=== PATIENT | female | born 1975 | race Hispanic/Latino ===

== ENCOUNTER 2018-04-05 07:31 | Day surgery (SDC) | payer BC ==
[2018-03-30 11:53] LABS: Absolute Lymphocytes (CBC) 2.2 K/uL (0.7-4.9); Absolute Monocytes 0.3 K/uL (0.1-1.3); Absolute Neutrophil 3.9 K/uL (1.8-8.0); Basophils % 0.5 % (0-1.3); Eosinophils % 2.3 % (0-4.4); Hematocrit 34.5 % (36.0-45.0); Lymphocytes % 33.5 % (15.3-44.8); MCH 20.7 pg (27.0-35.0); MCV 66.4 fL (80-100); MPV 7.1 fL (7.6-11.3); Monocytes % 4.4 % (3.3-12.3); RBC Red Blood Cell Count 5.19 M/uL (3.86-4.86)
[2018-03-30 12:03] LABS: Urine Appearance CLEAR; Urine Bilirubin NEGATIVE (NEG); Urine Blood 1+ (NEG); Urine Color YELLOW; Urine Glucose NEGATIVE (NEG); Urine Protein TRACE (NEG); Urine Specific Gravity 1.025 (1.005-1.030); Urine Urobilinogen 0.2 mg/dL (0.2-1.0)
[2018-03-30 12:06] LABS: Urine Microscopic Reflex ORDER UMIC
[2018-03-30 12:21] LABS: Anisocytosis 1+; Blood Morphology Comment NOTED (NOT SEEN); Hypochromasia 1+; Platelet Estimate ADEQ
[2018-03-30 13:26] LABS: Urine Amorphous Sediment TRACE /HPF (NONE SEEN); Urine Bacteria <20 /HPF (<20); Urine Culture Reflex Order NOT NEEDED; Urine RBC <5 /HPF (NONE SEEN)
--- NOTE | 2018-03-30 17:38 | EKG ---
Test Date: 2018-03-30 Test Time: 11:41:39 [place] Seamer: FIDENCIO MEASUREMENT RESULTS: Intervals: Rate: 61 PA: 140 QRSD: 80 QT: 408 QTc: 410 [place]: P: 46 PA: 140 QRS: 78 T: 54 INTERPRETIVE STATEMENTS: Normal sinus rhythm Normal ECG Compared to ECG 11/20/2017 13:01:14 No significant changes Electronically Signed On 03-30-18 17:36:49 CDT by Sergio Shaw
[2018-04-05] MEDS ORDERED: Ringers Lactate 1,000 ML IV ONE ×2 (07:39→09:07)
[2018-04-05] MEDS ORDERED: ROCURONIUM 50 MG/5 ML VIAL IV ONE (07:40)
[2018-04-05] MEDS ORDERED: PROPOFOL 200 MG/20 ML VIAL IV ONE (07:40)
[2018-04-05] MEDS ORDERED: DEXAMETHASONE 10 MG/ML VIAL ONE (07:40)
[2018-04-05] MEDS ORDERED: FENTANYL CITR 250 MCG/5 ML ONE ×2 (07:40→09:13)
[2018-04-05] MEDS ORDERED: MIDAZOLAM HCL 2 MG/2 ML INJ ONE (07:40)
[2018-04-05] MEDS ORDERED: SCOPOLAMINE HYDROBROMIDE PATCH TD ONE (07:45)
[2018-04-05] MEDS: CEFAZOLIN/SWI 2gm 2 GM/20 ML SYR IV SCH ×2 (08:06→08:25)
[2018-04-05] MEDS: NA CHLORIDE 0.9% 1,000 ML ONE ×2 (08:08→08:15)
[2018-04-05 08:12] LABS: Specific Gravity 1.025 (1.005-1.030)
[2018-04-05] MEDS ORDERED: KETOROLAC 30 MG/ML INJ ONE (10:20)
[2018-04-05] MEDS ORDERED: Mastisol Adhesive Liq ONE (10:51)
[2018-04-05] MEDS: MORPHINE 4 MG/ML SYR ONE ×4 (11:28→11:43)
[2018-04-05] MEDS ORDERED: MEPERIDINE HCL 25 MG/0.5 ML ONE ×2 (11:47→12:07)
[2018-04-05] MEDS ORDERED: HYDROCODONE/APAP 5/325 MG TAB ONE ×2 (12:52→14:07)
[2018-04-05 14:16] VITALS: TEMP 98
[2018-04-05 14:28] VITALS: BP 133/84; O2SAT 95
--- NOTE | 2018-04-05 20:28 | OP ---
Date of Procedure: 04/05/2018 Surgeon: Krysta Dumont MD Preoperative Diagnoses: Heavy menstrual bleeding, failed ablation. Postoperative Diagnoses: Heavy menstrual bleeding, failed ablation. Procedures Performed: Total laparoscopic hysterectomy, bilateral salpingectomy, cystoscopy. Anesthesia: General endotracheal. Estimated Blood Loss: 100. Urine Output: 200. Specimens: Uterus, bilateral tubes. Complications: None. Drains: None. Condition: The patient is stable. Findings: Uterus slightly enlarged. Ovaries normal. Tubes normal. Cystoscopy was negative with pa tent bilateral ureteric jets. Description Of Procedure: After informed consent was verified, the patient was taken back to the OR. 2 g of Ancef were given. The patient was put under general anesthesia. She was positioned by arms tucked on her side in lithotomy with Manny stirrups. Pelvic exam was performed. Uterus was found t o be anteflexed about 6-8 weeks size, mobile. No nodularity in the cul-de-sac. No adnexal masses. Abdomen, vulva, vagina, and perineum were prepped and draped in a sterile fashion. Huston was placed to drain the bladder and a large VCare introduced and fixed in place and this area draped. A 1 cm infraumbilical incision was made with a scalpel using the open laparoscopy technique. Fascia was exposed, incised, tagged. Peritoneum entered bluntly. S retractors placed and Risa introduced and fixed in place. Site of entry was checked. The area above the umbilical incision had omental a dhesions. However, rest of the upper abdominal cavity, lower abdominal cavity were all free of adhes ions. The patient was placed in Trendelenburg position. A 5 mm left lower quadrant and 10 mm suprapubic tr ocars were placed under direct vision, later on a 5 mm in right lower quadrant was placed without any problems. On survey of the pelvic cavity, both tubes and ovaries appeared to be normal unremarkable without any endometriosis. Implants on the peritoneal surfaces and the pelvis. Both ureters were i dentified from the pelvic brim to the ureteric tunnel, and there was no anatomical distortion. After taking down the mesosalpinx and the tube on the left side, utero-ovarian ligament was taken ryan n. Round ligament was taken down. Dissection was performed to open up the anterior broad ligament a nd this was taken to the other side along the bladder flap, and the bladder flap was retracted inferi tamiko. The vaginal cuff was exposed. The posterior broad ligament was taken down all the way to the left uterosacral. Then, the broad ligament was skeletonized to expose the vessels. The fat in front of the bladder was also dissected and pushed inferiorly. On the opposite side, the round ligament, mesosalpinx, utero-ovarian ligament, and tube were all take n down. The round ligament after complete transection, the anterior posterior broad ligaments were d issected. The anterior one was connected to the bladder side from the other side and posteriorly to the right uterosacral ligament. At this point, there was a broad ligament vessel vein that was bleed ing, and this was cauterized with the help of the curved-tip LigaSure. Once the vessels were skeleto nized here, the bladder flap was placed a little bit further about 2 cm above and distal to the area of the colpotomy. After the windows were made, first on the right side, the pedicles were taken down with the help of the basket tip bipolar and then the LigaSure. Then the cardinal ligaments were als o taken down. On the opposite side, similar dissection was performed taking down the vessels, the ut erine artery and vein, and the cardinal ligaments. There was vascularity at the level of the vaginal wall, and all these small vessels when they bled were taken down with the help of the basket tip bip olar by picking up with the graspers. Colpotomy was performed with the monopolar hook blade in a circumferential fashion. Specimen detache d and pulled out through the vagina. There was a bleeder at about in 2 o'clock position on the vaginal cuff on the abdominal side of the w all. This was picked up with [place] grasper and cauterized with the help of bipolar. There was ex cellent hemostasis after this. After thorough irrigation and suction of the clots, a salpingectomy w as performed first on the left side, then on the right side taking down the mesosalpinx in a systemat ic fashion all the way to the fimbriated end, and suturing the specimens to the suprapubic port. Onc e both of them were removed in this fashion, the ovaries had good vascular supply and appeared to be in good position without any potential for torsion. After the vaginal cuff was well irrigated and suction, it was decided to be closed with a running sti tch with a barbed suture. A knot was placed with the tip of the Bard suture and this was passed thro ugh the posterior vaginal wall at the right end of the cuff and then it was brought back up in a cont inuous running fashion, about 6 sutures were placed to close the anterior and posterior vaginal donaldson . The V-Loc was used all the way to the end and then it was cut short by like about leaving a 3 mm t ail. There was excellent hemostasis. The peritoneum was closed with the help of 3-0 Vicryl in a con tinuous running fashion anteriorly and posteriorly. Once this was done, there was excellent closure without exposure of the V-Loc to the bowel. After thorough irrigation and suction of the entire peritoneal cavity, trocars removed under direct v ision without any bleeding. The umbilical trocar was removed after gas was desufflated. The fascia was closed with the help of 0 PDS in a [id number] fashion and the suprapubic fascial incision cl osed with the help with 0 Vicryl stitch. Cystoscopy was performed with a 30-degree lens normal saline for distention medium and a 17-Kiswahili sh eath. There were excellent streams of urine from both ureteric orifices. No evidence of any trauma to the bladder. There was a small pucker on the right lateralmost aspect lateral to the trigonal are a, but no suture, and no evidence of any foreign body. The bladder was drained. Vaginal cuff was in spected with the cystoscope by doing a vaginoscopy. There was excellent closure and no raw edges. T he scope was removed. The patient was cleaned up. Instrument, needle, and sponge counts x3 were correct at the end of the case. The vaginal bulb was removed as well. She will follow up with me in 1 week. HANNY/NIDHI Voice ID: [id number] Report ID: [id number]
== END 2018-04-05 12:20 | disposition home or self-care (01) ==
LOC: OR 07:31
PROVIDERS: ATTEND Obstetrics & Gynecology
PROC: 0UT74ZZ Resection of Bilateral Fallopian Tubes, Percutaneous Endoscopic Approach (ICD-10-PCS; 2018-04-05)
PROC: 0UT94ZZ Resection of Uterus, Percutaneous Endoscopic Approach (ICD-10-PCS; principal; 2018-04-05 08:30)
DX: N92.0 Excessive and frequent menstruation with regular cycle (principal); N83.8 Other noninflammatory disorders of ovary, fallopian tube and broad ligament; N70.11 Chronic salpingitis; D50.9 Iron deficiency anemia, unspecified; R60.0 Localized edema; I10 Essential (primary) hypertension; Z68.42 Body mass index [BMI] 45.0-49.9, adult; E66.01 Morbid (severe) obesity due to excess calories; Z88.0 Allergy status to penicillin; Z88.3 Allergy status to other anti-infective agents; Z82.49 Family history of ischemic heart disease and other diseases of the circulatory system; Z83.3 Family history of diabetes mellitus; Z80.3 Family history of malignant neoplasm of breast
CPT/HCPCS: 36415; 81003; 81015; 81025; 85025; 86850; 86900; 86901; 88307; 93005; J0690; J1100; J2175; J2250; J7030

== ENCOUNTER 2020-12-28 06:28 | Observation (INO) | payer OTHER ==
--- OUTSIDE RECORDS SUMMARY | 2020-12-28 06:31 | XMS REPORT | Continuity of Care Document ---
:1975 Author Organization [facility] Address [address] [place] [address] Care Team Providers Name Role Phone Unavailable Unavailable Unavailable Problems Condition Condition Condition Status Onset Resolution Last Treating Co mments Source Name Details Category Date Date Treatment Clinician Date Bilateral Bilateral Diagnosis Active [facility] - extremity extremity Florentino mendy edema edema l [facility] Body mass Body mass Diagnosis Active [facility] index index [facility] - (BMI) of (BMI) of Memori a 50-59.9 in 50-59.9 in l adult adult [facility] Stress Stress Diagnosis Active [facility] incontin[facility] incontinen Pita k[facility] - ce of ce of Memoria urine urine l [facility] Swelling Swelling Problem [facility] Morbid Morbid Diagnosis Active [facility] (severe) (severe) [facility] - obesity obesity Memoria due to due to l excess excess [facility] calories calories ent Clinics Chronic Chronic Diagnosis [facility] anemia [facility] Leg pain, Leg pain, Diagnosis Active [facility] left left [facility] Overactive Overactive Diagnosis Active [facility] bladder bladder [facility] Allergies, Adverse Reactions, Alerts Allergy Allergy Status Severity Reaction(s) Onset Inactive Treating Comm ents Source Name Type Date Date Clinician penicill Adverse Active hives [facility] in Reaction [facility] Medications Ordered Filled Start Stop Current Ordering Indication Dosage Frequency Signature Comments Components Source Medication Medication Date Date Medication? Clinician (SIG) Name Name Lasix Lasix Yes Na La [address] [facility] 7[facility]20 [facility] - 00:00: Memoria 00 l [facility] Potassium Potassium 2018- No Na La [address] [facility] Chloride ER Chloride ER 7-20 10-18 with food [facility] - 00:00: 00:00 [facility] 00 :00 [facility] VESIcare VESIcare 2018- No Na La [address] [facility] Procedures This patient has no known procedures. Encounters Start End Encounter Admission Attending Care Care Encounter Source Date/Time Date/Time Type Type Clinicians Facility Department ID 2018-05-25 2018-05-25 Outpatient Rigo Esquivel [id number] [facility] 09:15:00 09:15:00 [employer] [facility] Medicine [facility] Results This patient has no known results.
--- NOTE | 2020-12-28 08:41 | RAD REPORT ---
EXAM DESCRIPTION: US - Abdomen Exam Limited - 12/28/2020 7:49 am CLINICAL HISTORY: RUQ pain COMPARISON: No comparisons FINDINGS: The gallbladder demonstrates several shadowing gallstones. No pericholecystic fluid or gal lbladder wall thickening. The common bile duct is normal measuring 2 mm. The liver demonstrates no findings of intrahepatic biliary dilatation. IMPRESSION: Cholelithiasis.
[2020-12-28] MEDS ORDERED: ONDANSETRON 4 MG/2 ML VIAL ONE ×2 (08:43→13:44)
[2020-12-28] MEDS ORDERED: MORPHINE 4 MG/ML SYR ONE ×4 (08:43→13:44)
[2020-12-28 08:51] LABS: Basophils % 0.8 % (0-1.3); Hematocrit 33.3 % (36.0-45.0); Lymphocytes % 31.1 % (15.3-44.8); MPV 7.1 fL (7.6-11.3); RBC Red Blood Cell Count 4.67 M/uL (3.86-4.86)
[2020-12-28 09:04] LABS: ALT/SGPT 86 U/L (12-78); AST/SGOT 51 U/L (15-37); Albumin 3.4 g/dL (3.4-5.0); Alkaline Phosphatase 98 U/L (45-117); BUN Blood Urea Nitrogen 7 mg/dL (7-18); Bicarbonate 25 mmol/L (21-32); Bilirubin Direct < 0.1 mg/dL (0-0.2); Bilirubin Total 0.4 mg/dL (0.2-1.0); Glucose Level 107 mg/dL (74-106); Lipase 217 U/L (73-393); Potassium 3.5 mmol/L (3.5-5.1); Protein, Total 7.8 g/dL (6.4-8.2); Sodium Level 142 mmol/L (136-145)
--- NOTE | 2020-12-28 09:51 | EDPHYS ---
Physician Documentation [facility] Name: Sophy Bernal Age: 45 yrs Sex: Female : 1975 Arrival Date: 12/28/2020 Time: 06:36 Bed 15 Private MD: ED Physician Vince Clark HPI: 12/28 07:51 This 45 yrs old Female presents to ER via Ambulatory with complaints of Flank rn Pain, Abdominal Pain - RUQ. 07:51 The patient presents with abdominal pain in the right upper quadrant. Onset: The rn symptoms/episode began/occurred this morning, at 03:00. The symptoms radiate to right back. Associated signs and symptoms: Pertinent positives: diarrhea, nausea, Pertinent negatives: fever, shortness of breath, vomiting blood. The symptoms are described as intermittent, sharp. Modifying factors: The symptoms are alleviated by nothing, the symptoms are aggravated by touching the area. Severity of pain: At its worst the pain was moderate in the emergency department the pain is unchanged. The patient has experienced a previous episode. The patient has not recently seen a physician. Reports pain since 0300 this AM, assoc with nausea and diarrhea, no fever, told in past might need gallbladder removed but hadn't caused problems until now. . 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 - Social history:: Smoking status: Patient denies any tobacco usage or history of. - Family history:: not pertinent. - Hospitalizations: : No recent hospitalization is reported. - Code Status:: Full code. ROS: 07:51 Constitutional: Negative for fever, chills, and weight loss, Eyes: Negative for injury, rn pain, redness, and discharge, Cardiovascular: Negative for chest pain, palpitations, and edema, Respiratory: Negative for shortness of breath, cough, wheezing, and pleuritic chest pain, Abdomen/GI: + abd pain and nausea/diarrhea MS/Extremity: Negative for injury and deformity, Skin: Negative for injury, rash, and discoloration, Neuro: Negative for headache, weakness, numbness, tingling, and seizure. Exam: 07:51 Constitutional: Overweight woman, appears in pain, moaning Head/Face: Normocephalic, rn atraumatic. ENT: MMM Cardiovascular: Regular rate and rhythm. No pulse deficits. Respiratory: No increased work of breathing, no retractions or nasal flaring. Abdomen/GI: soft, + tendern RUQ, no rebound, neg ball Skin: Warm, dry MS/ Extremity: Pulses equal, no cyanosis. Neuro: Awake and alert, GCS 15, oriented to person, place, time, and situation. Vital Signs: 06:44 BP 175 / 101; Pulse 76; Resp 18; Temp 98.2(O); Pulse Ox 98% on R/A; Weight 122.47 kg lp1 (R); Height 4 ft. 11 in. (149.86 cm); Pain 10/10; 09:48 BP 151 / 68; rn 12:55 BP 156 / 68; Pulse 65; Resp 18; Temp 96.4; Pain 4/10; dm14 19:45 BP 162 / 76; Pulse 64; Resp 17; Pulse Ox 100% on R/A; jb4 06:44 Body Mass Index 54.53 (122.47 kg, 149.86 cm) lp1 MDM: 07:46 Patient medically screened. rn 09:48 Differential diagnosis: cholecystitis, Cholelithiasis, gastritis, gastroesophageal rn reflux disease, non-specific abd pain, pancreatitis, Peptic Ulcer Disease. Data reviewed: vital signs, nurses notes, lab test result(s), radiologic studies, ultrasound, and as a result, I will admit patient. Counseling: I had a detailed discussion with the patient and/or guardian regarding: the historical points, exam findings, and any diagnostic results supporting the discharge/admit diagnosis, lab results, radiology results, the need for further work-up and treatment in the hospital. Response to treatment: There is no appreciated change of the patient's symptoms at this time, and as a result, I will admit patient. Admission orders: after a detailed discussion of the patient's condition and case, the admit orders are written by me. ED course: Pt with intractable pain, consulted with Dr. Nichole, requests NPO and abx, will take patient onto his service. . 12/28 07:51 Order name: Basic Metabolic Panel; Complete Time: 09:06 rn 12/28 07:51 Order name: CBC with Diff; Complete Time: 09:06 rn 12/28 07:29 Order name: US Abdomen Limited; Complete Time: 08:45 rn 12/28 07:51 Order name: Hepatic Function; Complete Time: 09:06 rn 12/28 07:51 Order name: Lipase; Complete Time: 09:06 rn 12/28 07:51 Order name: IV Saline Lock; Complete Time: 18:05 rn 12/28 07:51 Order name: Labs collected and sent; Complete Time: 18:05 rn 12/28 09:34 Order name: NPO; Complete Time: 09:46 rn Administered Medications: 08:32 Drug: morphine 4 mg Route: IVP; Site: right antecubital; dm14 09:32 Follow up: Response: No adverse reaction; Pain is decreased dm14 08:32 Drug: Zofran (Ondansetron) 4 mg Route: IVP; Site: right antecubital; dm14 09:32 Follow up: Response: No adverse reaction dm14 09:40 Drug: morphine 4 mg Route: IVP; Site: right antecubital; dm14 09:46 Follow up: Response: No adverse reaction; Pain is decreased dm14 11:04 Drug: morphine 4 mg Route: IVP; Site: right antecubital; dm14 11:23 Follow up: Response: No adverse reaction; Pain is decreased dm14 11:40 Drug: Cipro 400 mg Volume: 200 ml; Route: IVPB; Infused Over: 60 mins; Site: right dm14 antecubital; 17:52 Follow up: Response: No adverse reaction; IV Status: Completed infusion dm14 11:40 Drug: Flagyl 500 mg Volume: 100 ml; Route: IVPB; Rate: 200 ml/hr; Infused Over: 30 dm14 mins; Site: right antecubital; 17:51 Follow up: Response: No adverse reaction; IV Status: Completed infusion dm14 13:35 Drug: morphine 4 mg Route: IVP; Site: right antecubital; dm14 17:32 Follow up: Response: No adverse reaction; Pain is decreased dm14 13:35 Drug: Zofran (Ondansetron) 4 mg Route: IVP; Site: right antecubital; dm14 17:32 Follow up: Response: No adverse reaction; Nausea is decreased dm14 17:31 Drug: Phenergan 12.5 mg Route: IVP; Site: right antecubital; dm14 17:33 Follow up: Response: No adverse reaction dm14 Disposition: 12/28/20 09:50 Hospitalization ordered by Sloan Nichole for Observation. Preliminary diagnosis are Cholelithiasis, Intractable pain. - Bed requested for Telemetry/MedSurg (observation). - Status is Observation. jb4 - Condition is Stable. - Problem is new. - Symptoms have improved. Signatures: Dispatcher [employer] EDMS Johana Hernandez Roman, MD MD rn Pena, Laura RN RN lp1 Luis Mo RN RN jb4 Esperanza Mercado RN RN dm14 Corrections: (The following items were deleted from the chart) 14:11 09:50 Hospitalization Ordered by Sloan Nichole MD for Observation. Preliminary diagnosis bd is Cholelithiasis; Intractable pain. Bed requested for Telemetry/MedSurg (observation). Status is Observation. Condition is Stable. Problem is new. Symptoms have improved. rn 14:59 14:11 12/28/2020 09:50 Hospitalization Ordered by Sloan Nichole MD for Observation. bd Preliminary diagnosis is Cholelithiasis; Intractable pain. Bed requested for [facility] ER HOLD. Status is Observation. Condition is Stable. Problem is new. Symptoms have improved. bd 20:14 14:59 12/28/2020 09:50 Hospitalization Ordered by Sloan Nichole MD for Observation. jb4 Preliminary diagnosis is Cholelithiasis; Intractable pain. Bed requested for Telemetry/MedSurg (observation). Status is Observation. Condition is Stable. Problem is new. Symptoms have improved. bd
--- NOTE | 2020-12-28 09:51 | ER ---
Nurse's Notes [facility] Name: Sophy Bernal Age: 45 yrs Sex: Female : 1975 Arrival Date: 12/28/2020 Time: 06:36 Bed 15 Private MD: Diagnosis: Cholelithiasis;Intractable pain Presentation: 12/28 06:42 Chief complaint: Patient states: Sharp pain that began about 0300 this AM; Reports RUQ lp1 pain radiating to back; Reports diarrhea for the past few days; Denies fever, vomiting. Coronavirus screen: Client denies travel out of the [place] in the last 14 days. At this time, the client does not indicate any symptoms associated with coronavirus-19. Ebola Screen: No symptoms or risks identified at this time. Risk Assessment: Do you want to hurt yourself or someone else? Patient reports no desire to harm self or others. Onset of symptoms was December 28, 2020 at 03:00. 06:42 Method Of Arrival: Ambulatory lp1 06:42 Acuity: CARMINE 2 lp1 06:44 Initial Sepsis Screen: Does the patient meet any 2 criteria? No. Patient's initial lp1 sepsis screen is negative. Does the patient have a suspected source of infection? No. Patient's initial sepsis screen is negative. Triage Assessment: 12:49 General: Appears distressed, uncomfortable, obese, well groomed. Pain: Complains of dm14 pain in right upper quadrant Pain radiates to right mid back Pain currently is 10 out of 10 on a pain scale. 15:27 General: Behavior is cooperative, appropriate for age, crying. 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 - Social history:: Smoking status: Patient denies any tobacco usage or history of. - Family history:: not pertinent. - Hospitalizations: : No recent hospitalization is reported. - Code Status:: Full code. Screenin:44 Abuse screen: Denies threats or abuse. Denies injuries from another. Nutritional lp1 screening: No deficits noted. Tuberculosis screening: No symptoms or risk factors identified. Fall Risk None identified. Assessment: 08:00 Reassessment: Received pt in pain 10/10. States has had gallbladder pain in the past. dm14 08:00 General: Appears distressed, uncomfortable, obese. Pain: Complains of pain in right dm14 upper quadrant Pain radiates to right mid back Pain currently is 10 out of 10 on a pain scale. 08:00 Neuro: No deficits noted. Cardiovascular: No deficits noted. GI: Abdomen is tender to dm14 palpation in right upper quadrant. 08:00 GI: Bowel sounds present X 4 quads. dm14 09:43 Reassessment: Continues to have right upper quadrant pain. Had slept for awhile. dm14 Otherwise condition unchanged. 12:55 Reassessment: Pain now 4/10. Pt quite drowsy and sleeping on and off. Surgeon was in to dm14 speak with her. 19:15 Reassessment: Patient appears in no apparent distress at this time. Patient and/or jb4 family updated on plan of care and expected duration. Pain level reassessed. Patient is alert, oriented x 3, equal unlabored respirations, skin warm/dry/pink. 19:50 Reassessment: Patient appears in no apparent distress at this time. Patient and/or jb4 family updated on plan of care and expected duration. Pain level reassessed. Patient is alert, oriented x 3, equal unlabored respirations, skin warm/dry/pink. Patient states feeling better. Vital Signs: 06:44 BP 175 / 101; Pulse 76; Resp 18; Temp 98.2(O); Pulse Ox 98% on R/A; Weight 122.47 kg lp1 (R); Height 4 ft. 11 in. (149.86 cm); Pain 10/10; 09:48 BP 151 / 68; rn 12:55 BP 156 / 68; Pulse 65; Resp 18; Temp 96.4; Pain 4/10; dm14 19:45 BP 162 / 76; Pulse 64; Resp 17; Pulse Ox 100% on R/A; jb4 06:44 Body Mass Index 54.53 (122.47 kg, 149.86 cm) lp1 ED Course: 06:36 Patient arrived in ED. am2 06:44 Triage completed. lp1 06:44 Arm band placed on. lp1 07:37 Patient's name was called from ER lobby. Unable to locate patient. Will disposition as lp1 left without being seen by a provider. 07:46 Vince Clark MD is Attending Physician. rn 07:49 US Abdomen Limited In Process Unspecified. EDMS 08:00 Ultrasound completed. hr 08:12 Esperanza Mercado, STEVEN is Primary Nurse. dm14 09:50 Sloan Nichole MD is Hospitalizing Provider. rn 15:11 No provider procedures requiring assistance completed. dm14 15:31 Patient has correct armband on for positive identification. Bed in low position. Call dm14 light in reach. Side rails up X2. 20:14 Patient admitted, IV remains in place. jb4 Administered Medications: 08:32 Drug: morphine 4 mg Route: IVP; Site: right antecubital; dm14 09:32 Follow up: Response: No adverse reaction; Pain is decreased dm14 08:32 Drug: Zofran (Ondansetron) 4 mg Route: IVP; Site: right antecubital; dm14 09:32 Follow up: Response: No adverse reaction dm14 09:40 Drug: morphine 4 mg Route: IVP; Site: right antecubital; dm14 09:46 Follow up: Response: No adverse reaction; Pain is decreased dm14 11:04 Drug: morphine 4 mg Route: IVP; Site: right antecubital; dm14 11:23 Follow up: Response: No adverse reaction; Pain is decreased dm14 11:40 Drug: Cipro 400 mg Volume: 200 ml; Route: IVPB; Infused Over: 60 mins; Site: right dm14 antecubital; 17:52 Follow up: Response: No adverse reaction; IV Status: Completed infusion dm14 11:40 Drug: Flagyl 500 mg Volume: 100 ml; Route: IVPB; Rate: 200 ml/hr; Infused Over: 30 dm14 mins; Site: right antecubital; 17:51 Follow up: Response: No adverse reaction; IV Status: Completed infusion dm14 13:35 Drug: morphine 4 mg Route: IVP; Site: right antecubital; dm14 17:32 Follow up: Response: No adverse reaction; Pain is decreased dm14 13:35 Drug: Zofran (Ondansetron) 4 mg Route: IVP; Site: right antecubital; dm14 17:32 Follow up: Response: No adverse reaction; Nausea is decreased dm14 17:31 Drug: Phenergan 12.5 mg Route: IVP; Site: right antecubital; dm14 17:33 Follow up: Response: No adverse reaction dm14 Outcome: 09:50 Decision to Hospitalize by Provider. rn 20:14 Admitted to Tele accompanied by tech, via wheelchair, room 422, with chart. jb4 20:14 Condition: stable 20:14 Discharge instructions given to patient, Instructed on the need for admit, Demonstrated understanding of instructions. 20:14 Patient left the ED. jb4 Signatures: Dispatcher [employer] EDMS Shirley Munoz hr Vince Clark MD MD rn Pena, Laura RN RN lp1 Luis Mo, RN RN jb4 Elizabet Michel Dianne RN RN dm14 Corrections: (The following items were deleted from the chart) 06:48 06:42 Acuity: CARMINE 3 lp1 lp1 13:54 12:58 Reassessment: Received pt in pain 08/15. States has had gallbladder pain in the dm14 past. dm14 14:04 08:00 General: Appears dm14 dm14 17:50 15:33 GI: Bowel sounds present X 4 quads. dm14 dm14 20:14 20:14 Discharge instructions given to patient, Instructed on the need for admit, jb4 jb4
[2020-12-28] MEDS ORDERED: CIPROFLOXACIN 400mg IV 400 MG/200 ML BAG IV ONE (11:42)
[2020-12-28] MEDS ORDERED: METRONIDAZOLE 500mg IVPB 500 MG/100 ML BAG IV ONE (11:42)
[2020-12-28] MEDS ORDERED: HYDROCODONE/APAP 7.5/325 MG TAB PO PRN (13:22)
[2020-12-28] MEDS ORDERED: PIPER/TAZO/NS 3.375gm 3.375 GM/100 ML BAG IVPB SCH (13:30)
[2020-12-28] MEDS ORDERED: PROMETHAZINE INJ 25 MG/ML AMP ONE (17:42)
[2020-12-28 20:20] VITALS: BMI 54.9
[2020-12-28] MEDS: CIPROFLOXACIN 400mg IV 400 MG/200 ML BAG IV SCH (21:19)
[2020-12-28] MEDS: NA CHLORIDE 0.9% 1,000 ML IV SCH ×2 (21:20→22:00)
[2020-12-28] MEDS: D5 0.45 NS 1,000 ML IV SCH (21:24)
[2020-12-28] MEDS ORDERED: ONDANSETRON 4 MG/2 ML VIAL IV PRN (21:24)
[2020-12-28] MEDS ORDERED: MORPHINE 4 MG/ML SYR IV PRN (21:24)
[2020-12-28] MEDS: METRONIDAZOLE 500mg IVPB 500 MG/100 ML BAG IV SCH (21:49)
--- NOTE | 2020-12-29 00:15 | HP ---
Date of Admission: 12/28/2020 Brief History Of Present Illness: The patient is a 45-year-old female who presents to [facility] with abdominal pain beginning in the right upper quadrant epigastric area with radiation through to her back, beginning late last night, early this morning after eating enchiladas. She has had this episode before in the past. On 1 episode, she was advised to have a cholecystectomy at that time, b ut has not followed up and as such, she now presents with recurrence of her symptoms. Her pain is si gnificantly improved. No nausea, no vomiting, no sick contacts. No recent travel. No new food expo sures. No COVID exposure by her description. She currently feels significantly better as described, but her pain is not completely resolved at this point. As such, she is in the hospital for evaluati on. Past Medical History: Significant for anemia. Past Surgical History: Tubal ligation and hysterectomy. Allergies: TO ERYTHROMYCIN AND PENICILLIN, WHICH CAUSED HIVES. Social History: She denies smoking, alcohol, recreational drug use. Review of Systems: Ten-point review of systems other than HPI, denies. Medications: None. Physical Examination: General: At the time of my examination, she is awake, alert, oriented. Psychiatric: She is appropriate and conversive. HEENT: She is normocephalic. Sclerae icteric. Mucous membranes are moist. Oropharynx clear. Neck: Supple without JVD. Chest: Normal expansion and excursion. Cardiovascular: Regular rate and rhythm. Pulmonary: Clear to auscultation bilaterally. Abdomen: Soft with mild epigastric and right upper quadrant tenderness to palpation. No rebound. N o guarding. No focal peritonitis. Negative Brito sign. No rebound or guarding. Abdomen: Obese generally. Extremities: No clubbing, cyanosis, or edema. Skin: Warm and dry. Laboratory Data: Revealed a white blood cell count of 6.6, hemoglobin 10.9, hematocrit of 33.3, plat elet count is 348. Her neutrophils are normal at 59%. Her sodium is 142, potassium 3.5, chloride 10 9, carbon dioxide 25, BUN 7, creatinine 0.5, glucose of 107, total bilirubin 0.4, direct component 0. 1, AST 51, ALT 86, alkaline phosphatase 98, lipase is 217. She had imaging performed, which included an ultrasound of the abdomen, officially read as gallbladder demonstrates several shadowing gallston es, no pericholecystic fluid or gallbladder wall thickening. The common bile duct is normal measurin g 2 mm. The liver demonstrates no findings of intrahepatic biliary dilatation, cholelithiasis on fin dings. Assessment And Plan: This is a 45-year-old female who comes in with signs and symptoms of biliary co lic. 1.IV fluid hydration. 2.Antibiotic coverage. 3.Serial abdominal exams and pain medication. 4.I have explained the risks, benefits, and alternatives of laparoscopic possible open cholecystecto my including but not limited to bleeding, infection, damage to surrounding tissues, injury to bile du cts, intestines, need for further operation, procedure. The patient would like to try nonoperative m anagement at this point and schedule this is an elective procedure. I have reviewed this plan versus operative plan and will admit the patient. If she is symptom free in the morning and continues to i mprove, we will likely start her on diet as tolerated. She can go home and follow up as an outpatien t. However, if she does not improve, we will likely plan for cholecystectomy as described above. YOLANDA/NIDHI Voice ID: [id number]
[2020-12-29] MEDS: METRONIDAZOLE 500mg IVPB 500 MG/100 ML BAG IV SCH ×4 (04:04→16:00)
[2020-12-29 04:31] LABS: Absolute Lymphocytes (CBC) 2.2 K/uL (0.7-4.9); Basophils % 0.5 % (0-1.3); Hematocrit 31.1 % (36.0-45.0); MPV 6.9 fL (7.6-11.3); RBC Red Blood Cell Count 4.39 M/uL (3.86-4.86)
[2020-12-29 04:49] LABS: ALT/SGPT 77 U/L (12-78); AST/SGOT 42 U/L (15-37); Albumin 2.8 g/dL (3.4-5.0); Alkaline Phosphatase 88 U/L (45-117); BUN Blood Urea Nitrogen 3 mg/dL (7-18); Bicarbonate 25 mmol/L (21-32); Bilirubin Total 0.5 mg/dL (0.2-1.0); Glucose Level 120 mg/dL (74-106); Lipase 130 U/L (73-393); Potassium 3.2 mmol/L (3.5-5.1); Protein, Total 6.8 g/dL (6.4-8.2); Sodium Level 141 mmol/L (136-145)
[2020-12-29] MEDS: D5 0.45 NS 1,000 ML IV SCH ×2 (05:21→14:02)
[2020-12-29] MEDS: NA CHLORIDE 0.9% 1,000 ML IV SCH (05:23)
[2020-12-29] MEDS: CIPROFLOXACIN 400mg IV 400 MG/200 ML BAG IV SCH (09:10)
[2020-12-29 10:47] VITALS: O2SAT 96
[2020-12-29] MEDS ORDERED: HYDROCODONE/APAP 10/325 TAB PO ONE (13:00)
[2020-12-29 16:24] VITALS: BP 140/77; TEMP 98.8
== END 2020-12-29 19:29 | disposition home or self-care (01) ==
LOC: ER 06:28 → ERHOLD 10:01 → 4TH 19:53
PROVIDERS: ADMIT Surgery; ATTEND Surgery
DX: K80.20 Calculus of gallbladder without cholecystitis without obstruction (principal); D64.9 Anemia, unspecified; R42 Dizziness and giddiness; Z20.822 Contact with and (suspected) exposure to COVID-19; Z88.0 Allergy status to penicillin; Z88.3 Allergy status to other anti-infective agents; Z90.710 Acquired absence of both cervix and uterus
CPT/HCPCS: 96365; 96368; 85025 ×2; 80048; 36415; 80076; 83690 ×2; 80053; 76705; 96375; 99285; 96366; U0003; J2550; J7799 ×2; J7030; J2405 ×2; J0744 ×3; G0378 ×3

== ENCOUNTER 2021-01-04 07:41 | Day surgery (SDC) | payer OTHER ==
[2021-01-04] MEDS: Ringers Lactate 1,000 ML IV ONE (08:15)
[2021-01-04] MEDS ORDERED: ROCURONIUM 50 MG/5 ML VIAL IV ONE (08:41)
[2021-01-04] MEDS ORDERED: MIDAZOLAM HCL 2 MG/2 ML INJ ONE (08:41)
[2021-01-04] MEDS ORDERED: METRONIDAZOLE 500mg IVPB 500 MG/100 ML BAG IV ONE (08:41)
[2021-01-04] MEDS ORDERED: FENTANYL CITR 100 MCG/2 ML ONE ×2 (08:41→09:46)
[2021-01-04] MEDS ORDERED: dexAMETHasone 10 MG/ML VIAL ONE (08:41)
[2021-01-04] MEDS ORDERED: propofoL 200 MG/20 ML VIAL IV ONE (08:41)
[2021-01-04] MEDS ORDERED: LIDOCAINE 1% MPF 2 ML AMPULE ONE (08:41)
[2021-01-04] MEDS ORDERED: ONDANSETRON 4 MG/2 ML VIAL ONE ×2 (08:41→11:46)
[2021-01-04] MEDS ORDERED: BUPIVACA 0.25%/EPI 0.0005% MDV 50 ML VIAL ONE (08:41)
[2021-01-04] MEDS ORDERED: Levofloxacin500mg IV 500 MG/100 ML BAG IV ONE (08:41)
[2021-01-04] MEDS ORDERED: GLYCOPYRROLATE 0.2 MG/ML SYR ONE (08:46)
[2021-01-04] MEDS ORDERED: ESMOLOL HCL 10 ML IV ONE (10:01)
[2021-01-04] MEDS ORDERED: Ringers Lactate 1,000 ML IV ONE (10:31)
--- NOTE | 2021-01-04 10:44 | P.OP ---
Preoperative diagnosis: Cholecystitis with Cholelithiasis Postoperative diagnosis: Cholecystitis with Cholelithiasis Primary procedure: Laparoscopic Cholecystectomy Anesthesia: GETA + Local Estimated blood loss: <10cc Specimen: Gallbladder Findings: Acute inflammation, distended GB, omental encasing Complications: None Transferred to: Recovery Room Condition: Good
[2021-01-04] MEDS ORDERED: KETOROLAC 30 MG/ML INJ ONE (10:57)
[2021-01-04] MEDS ORDERED: MORPHINE 10 MG/ML VIAL ONE (11:06)
--- NOTE | 2021-01-04 11:28 | OP ---
Date of Procedure: 01/04/2021 Surgeon: Sloan Nichole MD, Preoperative Diagnosis: Cholecystitis with cholelithiasis. Postoperative Diagnosis: Cholecystitis with cholelithiasis. Procedure Performed: Laparoscopic cholecystectomy. Anesthesia: General endotracheal plus local with 0.25% Marcaine with epinephrine. Estimated Blood Loss: Less than 2 mL. Specimen: Gallbladder. Findings: Acute inflammation, distended gallbladder, omental encasing. Complication: None. Disposition: The patient was transferred to the recovery room in good condition. Procedure In Detail: After informed consent was obtained, the patient was brought to the operating r oom, prepped and draped in the usual sterile fashion after adequate anesthesia achieved. A supraumbi lical area was anesthetized with 0.25% Marcaine and sharply incised. A 5 mm 0-degree optical trocar was introduced in the abdomen without evidence of complication. Insufflation was obtained to 15 mmHg at this time. There was no injury to vital structures upon entry to the abdomen. Three additional trocars were placed, 1 in the epigastrium, 2 in the right upper quadrant. These were similarly anest hetized, sharply incised, and a 5 mm trocar was introduced in the abdomen without evidence of complic ation. The umbilical trocar was then up-sized to a 12 mm under direct visualization without evidence of complication. There was omental encasing to the gallbladder. This was pulled down after positio jessika the patient's head up right-side up position and dissected off the anterior surface of the gallb ladder, which had acutely inflamed and quite distended and unable to be grasped. A decompression nee dle was brought on the field and decompressed at the fundus of the gallbladder bringing out dark disc olored bile at this point. The stone was noted to be impacted in the gallbladder neck, which require d significant attempts at maneuvering to allow for proper grasping at the gallbladder, placed towards the patient's right shoulder and dissection continued down to the Emy pouch of the gallbladder to discover. The cystic duct was quite short and the critical view of safety was obtained after skel etonizing 2 structures identified as both cystic duct and cystic artery. These were skeletonized. T hey were clipped with double titanium clips on the proximal side and singly on the distal side. Endo Deisi were used to ligate the structures. The gallbladder was removed from the hepatic fossa witho ut evidence of complication. Hemostatic maneuvers were required on the gallbladder bed as there was significant oozing from the gallbladder bed band due to inflammatory zheng surrounding the gallbladder. The gallbladder was then placed in an EndoCatch bag and removed through the umbilical trocar site a nd sent off for pathologic examination. The abdomen was then reinflated at this point, copiously irr igated multiple times. The hepatic fossa was inspected. No additional hemostatic measures required at this point and clips were found to be in good position at this point. The remainder of the abdome n was suctioned out. The patient was positioned back in neutral position. The Effluent was suctione d out once again. The umbilical trocar was removed. The umbilical trocar site was closed using a Heavenly Ruelas suture passer with 0 Vicryl in a fashion with good approximation of the tissues. The r emaining abdomen was then completely desufflated under direct visualization without evidence of compl ication. All trocars were removed. All skin incisions were copiously and closed with 4-0 Monocryl i n a running fashion. Dermabond placed over top. The patient tolerated the procedure well without ev idence of complication and transferred to PACU in good condition. All counts were correct at the end of the case. YOLANDA/INDHI Voice ID: [id number] Report ID: [id number]
[2021-01-04] MEDS: HYDROMORPHONE HCL 1 MG/ML INJ ONE ×4 (11:30→11:50)
[2021-01-04 11:57] VITALS: O2SAT 100
[2021-01-04] MEDS ORDERED: HYDROCODONE/APAP 7.5/325 MG TAB ONE (12:43)
[2021-01-04 12:46] VITALS: BP 126/71; TEMP 97
== END 2021-01-04 13:15 | disposition home or self-care (01) ==
LOC: OR 07:41
PROVIDERS: ATTEND Surgery
PROC: 0FT44ZZ Resection of Gallbladder, Percutaneous Endoscopic Approach (ICD-10-PCS; principal; 2021-01-04 11:30)
DX: K80.12 Calculus of gallbladder with acute and chronic cholecystitis without obstruction (principal)
CPT/HCPCS: 88304; 47562; J2704; J2250; J3010 ×2; J1100; J2001; J1170 ×2; J7120 ×2; J2405 ×2

== ENCOUNTER 2021-05-27 11:15 | Emergency (ER) | payer OTHER ==
--- OUTSIDE RECORDS SUMMARY | 2021-05-27 11:17 | XMS REPORT | Continuity of Care Document ---
:1975 Author Organization [facility] t Address [address] [place] [address] Care Team Providers Name Role Phone Unavailable Unavailable Unavailable Problems Condition Condition Condition Status Onset Resolution Last Treating Co mments Source Name Details Category Date Date Treatment Clinician Date Overactive Overactive Diagnosis Active [facility] Bilateral Bilateral Diagnosis Active [facility] - extremity extremity Florentino mendy edema edema l [facility] Body mass Body mass Diagnosis Active [facility] index index [facility] - (BMI) of (BMI) of Memori a 50-59.9 in 50-59.9 in l adult adult [facility] ent Clinics Stress Stress Diagnosis Active [facility] incontinen incontinen [facility] Swelling Swelling Problem [facility] Morbid Morbid Diagnosis Active [facility] (severe) (severe) [facility] - obesity obesity Memoria due to due to l excess excess Outpati calories calories ent Clinics Chronic Chronic Diagnosis [facility] anemia anemia [facility] Leg pain, Leg pain, Diagnosis Active [facility] left left [facility] Allergies, Adverse Reactions, Alerts Allergy Allergy Status Severity Reaction(s) Onset Inactive Treating Comm ents Source Name Type Date Date Clinician penicill Adverse Active hives [facility] in Reaction [facility] Medications Ordered Filled Start Stop Current Ordering Indication Dosage Frequency Signature Comments Components Source Medication Medication Date Date Medication? Clinician (SIG) Name Name Lasix Lasix Yes Na La [address] [facility] 7-20 [facility] - 00:[facility]: [facility] 00 l [facility] Potassium Potassium 2018- No Na La [address] [facility] Chloride ER Chloride ER 05-25 with food [facility] VESIcare VESIcare 2018- No Na La [address] [facility] 05-25 [facility]00 [facility] 00 :00 [facility] Procedures This patient has no known procedures. Encounters Start End Encounter Admission Attending Care Care Encounter Source Date/Time Date/Time Type Type Clinicians Facility Department ID 2018-05-25 2018-05-25 Outpatient Rigo Esquivel [id number] [facility] [address] 09:15:00 09:15:00 [employer] [facility] Results This patient has no known results.
[2021-05-27 15:25] LABS: Absolute Lymphocytes (CBC) 2.2 K/uL (0.7-4.9); Basophils % 1.1 % (0-1.3); Hematocrit 36.1 % (36.0-45.0); MPV 6.5 fL (7.6-11.3); RBC Red Blood Cell Count 4.91 M/uL (3.86-4.86)
--- NOTE | 2021-05-27 15:54 | RAD REPORT ---
EXAM DESCRIPTION: CT - Head Brain Wo Cont - 05/27/2021 3:29 pm CLINICAL HISTORY: Dizziness COMPARISON: 2018 TECHNIQUE: Computed axial tomography of the head was obtained. IV contrast was not requested. All CT scans are performed using dose optimization technique as appropriate and may include automated exposure control or mA/KV adjustment according to patient size. FINDINGS: An intracranial bleed is not seen . The ventricles are normal in caliber. No extra-axial fluid collection is noted. Empty sella turcica Fluid within the sinuses/ mastoids is not seen. IMPRESSION: No acute intracranial abnormality is seen. If patient's symptoms persist MRI of the bra in would be recommended.
[2021-05-27 16:01] LABS: Protime INR 1.04
--- NOTE | 2021-05-27 16:02 | RAD REPORT ---
EXAM DESCRIPTION: Macy Single View05/27/2021 3:28 pm CLINICAL HISTORY: Chest pain COMPARISON: none FINDINGS: The lungs appear clear of acute infiltrate. The heart is normal size IMPRESSION: No acute abnormalities displayed
[2021-05-27] MEDS ORDERED: ACETAMINOPHEN 500 MG TAB ONE (16:13)
[2021-05-27] MEDS ORDERED: MECLIZINE HCL 12.5 MG TAB ONE (16:14)
[2021-05-27] MEDS ORDERED: NA CHLORIDE 0.9% 1,000 ML ONE (16:14)
[2021-05-27 18:48] LABS: ALT/SGPT 75 U/L (12-78); AST/SGOT 42 U/L (15-37); Albumin 3.7 g/dL (3.4-5.0); Alkaline Phosphatase 100 U/L (45-117); BUN Blood Urea Nitrogen 8 mg/dL (7-18); Bicarbonate 25 mmol/L (21-32); Bilirubin Direct 0.1 mg/dL (0-0.2); Bilirubin Total 0.4 mg/dL (0.2-1.0); Glucose Level 87 mg/dL (74-106); Magnesium 2.1 mg/dL (1.8-2.4); NT PRO-BNP 35 pg/mL (<125); Potassium 3.7 mmol/L (3.5-5.1); Protein, Total 8.2 g/dL (6.4-8.2); Sodium Level 139 mmol/L (136-145); Troponin (Emerg Dept Use Only) < 0.02 ng/mL (0.0-0.045)
--- NOTE | 2021-05-27 19:37 | ER ---
Nurse's Notes [facility] Name: Sophy Bernal Age: 46 yrs Sex: Female : 1975 Arrival Date: 05/27/2021 Time: 11:17 Bed 14 Private MD: Diagnosis: Essential (primary) hypertension Presentation: 05/27 11:42 Chief complaint: Headache and home SBP 170s, unrelieved by Amlodipine 5mg x 2. hb Coronavirus screen: At this time, the client does not indicate any symptoms associated with coronavirus-19. Ebola Screen: No symptoms or risks identified at this time. Risk Assessment: Do you want to hurt yourself or someone else? Patient reports no desire to harm self or others. Onset of symptoms was May 27, 2021. 11:42 Method Of Arrival: Ambulatory hb 11:42 Acuity: CARMINE 3 hb Historical: - Allergies: 11:43 Erythromycin; hb 11:43 PENICILLINS; hb - PMHx: 11:43 Anemia; Vertigo; hypertension; hb Screenin:50 Abuse screen: Denies threats or abuse. Nutritional screening: No deficits noted. tw2 Tuberculosis screening: No symptoms or risk factors identified. Fall Risk None identified. Assessment: 14:59 General: Appears in no apparent distress. obese, well groomed, Behavior is calm, tw2 cooperative, appropriate for age. Pain: Denies pain. Neuro: Level of Consciousness is awake, alert, obeys commands, Oriented to person, place, time, situation. Cardiovascular: Patient's skin is warm and dry. Respiratory: Airway is patent Respiratory effort is even, unlabored, Respiratory pattern is regular, symmetrical. GI: No signs and/or symptoms were reported involving the gastrointestinal system. Abdomen is round non-distended, obese. : No signs and/or symptoms were reported regarding the genitourinary system. EENT: No signs and/or symptoms were reported regarding the EENT system. Musculoskeletal: Range of motion: intact in all extremities. 15:20 Reassessment: xray at bedside at this time. tw2 16:21 Reassessment: Patient appears in no apparent distress at this time. No changes from tw2 previously documented assessment. Patient and/or family updated on plan of care and expected duration. Pain level reassessed. Patient is alert, oriented x 3, equal unlabored respirations, skin warm/dry/pink. 17:14 Reassessment: Patient appears in no apparent distress at this time. No changes from tw2 previously documented assessment. Patient and/or family updated on plan of care and expected duration. Pain level reassessed. Patient is alert, oriented x 3, equal unlabored respirations, skin warm/dry/pink. 18:10 Reassessment: Patient appears in no apparent distress at this time. No changes from tw2 previously documented assessment. Patient and/or family updated on plan of care and expected duration. Pain level reassessed. Patient is alert, oriented x 3, equal unlabored respirations, skin warm/dry/pink. "im not dizzy anymore but my headache is still there". provider notified. 19:00 Reassessment: Patient appears in no apparent distress at this time. Patient and/or jb4 family updated on plan of care and expected duration. Pain level reassessed. Patient is alert, oriented x 3, equal unlabored respirations, skin warm/dry/pink. Patient states feeling better. 20:08 Reassessment: Patient appears in no apparent distress at this time. Patient and/or jb4 family updated on plan of care and expected duration. Pain level reassessed. Patient is alert, oriented x 3, equal unlabored respirations, skin warm/dry/pink. Vital Signs: 11:42 BP 173 / 91; Pulse 76; Resp 16; Temp 98; Pulse Ox 100% on R/A; Pain 8/10; hb 15:16 BP 141 / 75; Pulse 62; Resp 14; Pulse Ox 100% on R/A; tw2 15:34 BP 134 / 75 Supine; Pulse 58; Resp 17; Pulse Ox 100% on R/A; tw2 15:34 BP 131 / 79 Sitting; Pulse 59; Resp 17; Pulse Ox 100% ; tw2 15:34 BP 153 / 88 Standing; Pulse 70; Resp 17; Pulse Ox 100% on R/A; tw2 16:35 BP 146 / 82; Pulse 58; Resp 17; Pulse Ox 96% on R/A; tw2 17:13 BP 153 / 84; Pulse 57; Resp 17; Pulse Ox 97% on R/A; tw2 18:09 BP 153 / 91; Pulse 68; Resp 15; Pulse Ox 100% on R/A; tw2 20:00 BP 140 / 81; Pulse 74; Resp 16; Pulse Ox 99% on R/A; jb4 ED Course: 11:17 Patient arrived in ED. rg4 11:43 Triage completed. hb 11:43 Arm band placed on. hb 14:45 Inserted saline lock: 20 gauge in right antecubital area, using aseptic technique. tw2 Blood collected. 14:48 Negrita Rubio FNP-C [facility]. kb 14:48 Rashid Fischer MD is Attending Physician. kb 14:50 Teri Shaw, RN is Primary Nurse. tw2 14:50 Placed in gown. Bed in low position. Call light in reach. Adult w/ patient. Cardiac tw2 monitor on. Pulse ox on. NIBP on. 15:27 XRAY Chest (1 view) In Process Unspecified. EDMS 15:28 CT Head Brain wo Cont In Process Unspecified. EDMS 20:00 No provider procedures requiring assistance completed. IV discontinued, intact, jb4 bleeding controlled, No redness/swelling at site. Pressure dressing applied. Administered Medications: 15:56 Drug: Meclizine 25 mg Route: PO; tw2 18:15 Follow up: Response: No adverse reaction tw2 15:56 Drug: Tylenol 1000 mg Route: PO; tw2 18:15 Follow up: Response: No adverse reaction; Pain is unchanged, physician notified tw2 15:56 Drug: NS 0.9% 1000 ml Route: IV; Rate: 1000 ml; Site: right antecubital; tw2 19:00 Follow up: Response: No adverse reaction; IV Status: Completed infusion; IV Intake: jb4 1000ml Intake: 19:00 IV: 1000ml; Total: 1000ml. jb4 Outcome: 19:37 Discharge ordered by . kb 20:00 Discharged to home ambulatory, with family. jb4 20:00 Condition: stable 20:00 Discharge instructions given to patient, Instructed on discharge instructions, follow up and referral plans. medication usage, Demonstrated understanding of instructions, follow-up care, medications, Prescriptions given X 1. 20:09 Patient left the ED. jb4 Signatures: Dispatcher [employer] EDAR Negrita Rubio FNP-C FNP-Ckb Baxter, Heather, RN RN Teri Shaw RN RN tw2 Chery Stevenson rg4 Luis Mo RN RN jb4 Corrections: (The following items were deleted from the chart) 18:26 18:10 Reassessment: Patient appears in no apparent distress at this time. No changes tw2 from previously documented assessment. Patient and/or family updated on plan of care and expected duration. Pain level reassessed. Patient is alert, oriented x 3, equal unlabored respirations, skin warm/dry/pink. tw2
--- NOTE | 2021-05-27 19:37 | EDPHYS ---
Physician Documentation [facility] Name: Sophy Bernal Age: 46 yrs Sex: Female : 1975 Arrival Date: 05/27/2021 Time: 11:17 Bed 14 Private MD: ED Physician Rashid Fischer HPI: 05/27 16:32 This 46 yrs old Female presents to ER via Ambulatory with complaints of High kb Blood Pressure. 16:32 The patient has elevated blood pressure and discovered this at home, with a home kb device. Onset: The symptoms/episode began/occurred this morning. Associated signs and symptoms: Pertinent positives: dizziness, "felt like passing out", Pertinent negatives: chest pain, dyspnea, headache, lightheadedness, nausea, visual changes, vomiting, weakness. Severity of symptoms: At its worst the blood pressure was 177 mm Hg, in the emergency department the blood pressure is improved, 140 mm Hg. The patient has not experienced similar symptoms in the past. The patient has not recently seen a physician. Pt reports BP of 177/101 this morning. Went to work and felt dizzy and like she was going to pass out so she checked it again and it was 177/111 so she came in. States she did have chest pain last week, but thought it was due to anxiety. Also reports grandmother yesterday so that could be what is causing high blood pressure. Diagnosed with hypertension and started on amlodipine 3 weeks ago. Historical: - Allergies: 11:43 Erythromycin; hb 11:43 PENICILLINS; hb - PMHx: 11:43 Anemia; Vertigo; hypertension; hb ROS: 16:31 Constitutional: Negative for fever, chills, and weight loss. kb 16:31 Neuro: Positive for dizziness, near syncope. 16:31 All other systems are negative. Exam: 15:38 Constitutional: This is a well developed, well nourished patient who is awake, alert, kb and in no acute distress. Head/Face: Normocephalic, atraumatic. ENT: Moist Mucous membranes Cardiovascular: Regular rate and rhythm with a normal S1 and S2. No gallops, murmurs, or rubs. No pulse deficits. Respiratory: Respirations even and unlabored. No increased work of breathing, no retractions or nasal flaring. Abdomen/GI: Soft, non-tender. No distention Skin: Warm, dry with normal turgor. Normal color. MS/ Extremity: Pulses equal, no cyanosis. Neurovascular intact. Full, normal range of motion. Neuro: Awake and alert, GCS 15, oriented to person, place, time, and situation. Moves all extremities. Normal gait. Psych: Awake, alert, with orientation to person, place and time. Behavior, mood, and affect are within normal limits. 15:38 ECG was reviewed by the Attending Physician. Vital Signs: 11:42 BP 173 / 91; Pulse 76; Resp 16; Temp 98; Pulse Ox 100% on R/A; Pain 8/10; hb 15:16 BP 141 / 75; Pulse 62; Resp 14; Pulse Ox 100% on R/A; tw2 15:34 BP 134 / 75 Supine; Pulse 58; Resp 17; Pulse Ox 100% on R/A; tw2 15:34 BP 131 / 79 Sitting; Pulse 59; Resp 17; Pulse Ox 100% ; tw2 15:34 BP 153 / 88 Standing; Pulse 70; Resp 17; Pulse Ox 100% on R/A; tw2 16:35 BP 146 / 82; Pulse 58; Resp 17; Pulse Ox 96% on R/A; tw2 17:13 BP 153 / 84; Pulse 57; Resp 17; Pulse Ox 97% on R/A; tw2 18:09 BP 153 / 91; Pulse 68; Resp 15; Pulse Ox 100% on R/A; tw2 20:00 BP 140 / 81; Pulse 74; Resp 16; Pulse Ox 99% on R/A; jb4 MDM: 14:49 Patient medically screened. kb 16:31 Data reviewed: vital signs, nurses notes. Data interpreted: Pulse oximetry: on room air kb is 100 %. Interpretation: normal. 19:37 Counseling: I had a detailed discussion with the patient and/or guardian regarding: the kb historical points, exam findings, and any diagnostic results supporting the discharge/admit diagnosis, lab results, radiology results, the need for outpatient follow up, a family practitioner, to return to the emergency department if symptoms worsen or persist or if there are any questions or concerns that arise at home. 05/27 15:06 Order name: Basic Metabolic Panel kb 05/27 15:06 Order name: CBC with Diff; Complete Time: 15:30 kb 05/27 15:06 Order name: LFT's; Complete Time: 18:57 kb 05/27 15:06 Order name: Magnesium; Complete Time: 18:57 kb 05/27 15:06 Order name: NT PRO-BNP; Complete Time: 18:57 kb 05/27 15:06 Order name: PT-INR; Complete Time: 16:08 kb 05/27 15:06 Order name: Troponin (emerg Dept Use Only); Complete Time: 18:57 kb 05/27 15:06 Order name: XRAY Chest (1 view); Complete Time: 16:08 kb 05/27 15:06 Order name: EKG; Complete Time: 15:07 kb 05/27 15:06 Order name: CT Head Brain wo Cont; Complete Time: 15:55 kb 05/27 15:06 Order name: Basic Metabolic Panel; Complete Time: 18:57 EDMS 05/27 15:06 Order name: Cardiac monitoring; Complete Time: 15:09 kb 05/27 15:06 Order name: EKG - Nurse/Tech; Complete Time: 15:19 kb 05/27 15:06 Order name: IV Saline Lock; Complete Time: 18:15 kb 05/27 15:06 Order name: Labs collected and sent; Complete Time: 15:17 kb 05/27 15:06 Order name: O2 Per Protocol; Complete Time: 15:17 kb 05/27 15:06 Order name: O2 Sat Monitoring; Complete Time: 15:17 kb 05/27 15:06 Order name: Orthostatics; Complete Time: 15:52 kb 05/27 15:37 Order name: Labs - recollect needed: recollect all please; Complete Time: 15:52 em1 EC:38 Rate is 63 beats/min. Rhythm is regular. QRS [place] is Normal. GA interval is normal at kb 166 msec. QRS interval is normal at 88 msec. QT interval is normal at 434 msec. Administered Medications: 15:56 Drug: Meclizine 25 mg Route: PO; tw2 18:15 Follow up: Response: No adverse reaction tw2 15:56 Drug: Tylenol 1000 mg Route: PO; tw2 18:15 Follow up: Response: No adverse reaction; Pain is unchanged, physician notified tw2 15:56 Drug: NS 0.9% 1000 ml Route: IV; Rate: 1000 ml; Site: right antecubital; tw2 19:00 Follow up: Response: No adverse reaction; IV Status: Completed infusion; IV Intake: jb4 1000ml Disposition: 05/28 09:10 Co-signature as Attending Physician, Rashid Fischer MD I agree with the assessment and don plan of care. Disposition Summary: 05/27/21 19:37 Discharge Ordered Location: Home kb Condition: Stable kb Diagnosis - Essential (primary) hypertension kb Followup: kb - With: Emergency Department - When: As needed - Reason: Worsening of condition Followup: kb - With: Private Physician - When: 2 - 3 days - Reason: Recheck today's complaints, Continuance of care, Re-evaluation by your physician Discharge Instructions: - Discharge Summary Sheet kb - Hypertension, Adult, [id number] kb - How to Take Your Blood Pressure, [id number] kb - Panic Attack, [id number] kb Forms: - Medication Reconciliation Form kb - Thank You Letter kb - Antibiotic Education kb - Prescription Opioid Use kb Prescriptions: - Meclizine 25 mg Oral Tablet - take 1 tablet by ORAL route every 8 hours As needed; 30 tablet; Refills: 0, kb Product Selection Permitted Signatures: Dispatcher [employer] EDMS Negrita Rubio, SAND MIXER MACHINE-C SAND MIXER MACHINE-Pinob Rashid Fischer MD MD cha Martinez, Eric em1 Bety Osborne, RN RN Teri Shaw RN RN tw2 Luis Mo RN jb4
[2021-05-27 20:28] VITALS: TEMP 98
[2021-05-27 20:39] VITALS: BP 140/81; O2SAT 99
== END 2021-05-27 20:09 | disposition home or self-care (01) ==
LOC: ER 11:15
DX: I10 Essential (primary) hypertension (principal); Z88.0 Allergy status to penicillin; Z88.3 Allergy status to other anti-infective agents
CPT/HCPCS: 96361; 93005; 85025; 80048; 36415; 83735; 85610; 80076; 84484; 83880; 70450; 71045; 96360; 99284; J7030

== ENCOUNTER 2025-08-16 08:07 | Emergency (ER) | payer OTHER ==
--- OUTSIDE RECORDS SUMMARY | 2025-08-16 08:11 | XMS REPORT | Continuity of Care Document ---
Author Name Unknown Address [address] [facility] [place] [address] [facility] Address [address] [facility] [place] [address] Care Team Providers Care Tribunal Member Name Role Phone AMBER DURAND JR Primary Care Physician Wendy shah GC_GCBZW_Julia_Shobha Attending Clinician Unavaila ble Radiology Attending Clinician Unavailable RADIOLOGY Attending Clinician Unavailable Krysta Dumont Attending Clinician Unavaila JAMES GoelONODIONISIO CHRISTYARIA Attending Clinician Un available James Colononodavida I Attending Clinician Unavail able GC_GCBZW_Julia_S Admitting Clinician Unavaila AMBER Hickey JR Admitting Clinician Unavailab Krysta Bowman Admitting Clinician Unavaila ble EKHAESE, OBONORUMA IMARIA Admitting Clinician Un available Ekmarina Obonoruma I Admitting Clinician Unavail able Payers Payer Name Policy Type Policy Number Effective Date Expirati on Date Source [facility] [id number] 2021 00:00:00 [employer] [id number] 2021 00:00:00 Problems Condition Name Condition Details Condition Category Status Onset Date Resolution Date Last Treatment Date Treating Clinician Comments Source Leg pain, left Leg pain, left Diagnosis Active [facility] Overactive bladder Overactive bladder Diagnosis Active [facility] Bilateral lower extremity edema Bilateral lower extremity edema Diagnosis Active [facility] Body mass index (BMI) of 50-59.9 in adult Body mass index (BMI) of 50-59.9 in adult Diagnosis Active [facility] Stress incontinen ce of urine Stress incontinen ce of urine Diagnosis Active [facility] Swelling Swelling Problem Active [facility] Morbid (severe) obesity due to excess calories Morbid (severe) obesity due to excess calories Diagnosis Active [facility] Chronic anemia Chronic anemia Diagnosis Active [facility] Allergies, Adverse Reactions, Alerts Allergy Name Allergy Type Status Severity Reaction(s) Onset Date Inactive Date Treating Clinician Comments Source Penicill ins DA Active [place] 07-28 00:00: 00 [facility] erythrom ycin base DA Active [place] 07-28 00:00: 00 [facility] Penicill ins DA Active [place] HIVES 07-28 00:00: 00 [facility] erythrom ycin base DA Active [place] STOMACH CRAMPS 07-28 00:00: 00 [facility] PENICILL INS Drug Class Active Hives 11-26 00:00: 00 [facility] Penicill ins Propensi ty to adverse reaction s Active Hives 11-26 00:00: 00 [facility] penicill in Adverse Reaction Active hives [facility] Social History Social Habit Start Date Stop Date Quantity Comments Source Sex Assigned At 1975 00:00:00 1975 00:00:00 [facility] Smoking Status Start Date Stop Date Source Tobacco smoking consumption unknown [facility] Medications Ordered Medication Name Filled Medication Name Start Date Stop Date Current Medication? Ordering Clinician Indication Dosage Frequency Signature (SIG) Comments Components Source Lasix Lasix 05-25 00:00: 00 Yes Na La 1 tablet [facility] Potassium Chloride ER Potassium Chloride ER 05-25 00:00: 00 08-23 00:00 :00 No Na La 1 tablet with food [facility] VESIcare VESIcare 05-25 00:00: 00 06-24 00:00 :00 No Na La 1 tablet [facility] ondansetron (ZOFRAN ODT) 4 mg disintegrat ing tablet 11-30 00:00: 00 Yes 4mg Take 1 Tab by mouth every 8 (eight) hours as needed for Nausea and Vomiting (N/V). [facility] acetaminoph en-codeine (TYLENOL-CO DEINE #3) 300-30 mg tablet 11-30 00:00: 00 Yes 1{tbl} Take 1 Tab by mouth every 6 (six) hours as needed for Pain (scale 4-6). [facility] Procedures Procedure Date / Time Performed Performing Clinician Source BI ULTRASOUND BREAST COMPLETE RIGHT 2022-11-22 16:57:49 Requisition, Paper [facility] BI DIAGNOSTIC TOMOSYNTHESIS RIGHT 2022-11-22 16:06:02 Requisition, Paper [facility] PATIENT FINANCIAL POLICY 2022-08-23 17:48:39 Doctor Unassigned, [facility] NO SHOW OR MISSED APPOINTMENT POLICY ACKNOWLEDGEMENT 2022-08-23 17:48:10 Doctor Unassigned, [facility] CONSENT/REFUSAL FOR DIAGNOSIS AND TREATMENT 2022-08-23 17:47:42 Doctor Unassigned, [facility] ASSIGNMENT OF BENEFITS 2022-08-23 17:47:21 Docto r Unassigned, [facility] [id number] 2022-07-28 00:00:00 KADSA [facility] [place] [id number] 2022-07-28 00:00:00 KADSA [facility] [place] [id number] 2022-07-28 00:00:00 KADSA [facility] [place] [id number] 2022-07-28 00:00:00 KADSA [facility] [place] [id number] 2022-07-28 00:00:00 KADSA [facility] [place] [id number] 2022-07-28 00:00:00 [facility] Start Date/Time End Date/Time Encounter Type Admission Type Attending Clinicians Care Facility Care Department Encounter ID Source 2023-10-17 20:14:38 2023-10-17 20:15:00 Emergency [facility] [id number] [facility] 2022-11-22 09:32:59 2022-11-22 23:59:00 Hospital Encounter Radiology [facility] [id number] [facility] 2022-11-22 09:31:43 2022-11-22 09:31:00 Outpatient R RADIOLOGY [facility] [id number] [facility] 2022-11-22 09:30:00 2022-11-22 09:31:00 Hospital Encounter Radiology [facility] [id number] [facility] 2022-08-23 12:49:30 2022-08-23 23:59:00 Outpatient R RADIOLOGY [facility] [id number] [facility] 2022-08-23 12:49:30 2022-08-23 23:59:00 Hospital Encounter Radiology [facility] [id number] [facility] 2022-07-28 08:01:00 2022-07-29 15:00:00 Inpatient Krysta Jacobs [facility] MEDI.01 [id number] [facility] 2021-10-06 05:56:00 2021-10-08 11:10:00 Inpatient ERIK COLON MHSE PRASHANT [facility] 2021-07-29 15:30:00 2021-07-29 12:41:00 Inpatient Erik Link [facility] [id number] [facility] 2018-05-25 09:15:00 2018-05-25 09:15:00 [facility] [id number] Results Test Description Test Time Test Comments Results Result Co mments Source PROTHROMBIN [id number] 09:45:00* Test Item Value Reference Range Interpretation Comme nts PT PATIENT (test code = PTP) 11.6 SECONDS 9.3-12.9 N INTERNATIONAL NORMAL RATIO (test code = INR) 1.02 INR Unit 0.8-1.2 N TARGET INR BY INDICATION Indication INR1. Prophylaxis of venous thrombosis 2.0 - 3.0 (orthopedic surgery), Prophylaxis of venous thrombosis (other than high-risk surgery), Treatment of Deep Vein Thrombosis/Pulmonary Embolism, Prevention of systemic embolism - Tissue heart valves, Acute Myocardial Infarction (to prevent systemic embolism), Valvular heart disease, Acute Myocardial Infarction (to prevent systemic embolism), Valvular heart disease, Atrial Fibrillation, Bileaflet mechanical valve in aortic position.2. Mechanical prosthetic valves (high risk), 2.5 - 3.5 Presence of Lupus Anticoagulant or Antiphospholipid Antibodies, Prevention of systemic embolism - Acute Myocardial Infarction (to prevent recurrent infarct). THROMBOPLASTIN TIME [id number] 09:45:00* Test Item Value Reference Range Interpretation Comme nts THROMBOPLASTIN TIME PARTIAL (test code = PTT) 34.7 SECONDS 26-35 N BASIC METABOLIC [id number] 09:21:00* Test Item Value Reference Range Interpretation Comme nts SODIUM (test code = NA) 140 mmol/L 134-147 N POTASSIUM (test code = K) 3.7 mmol/L 3.4-5.0 N CHLORIDE (test code = CL) 107 mmol/L 100-108 N CARBON DIOXIDE (test code = CO2) 28 mmol/L 21-32 N ANION GAP (test code = GAP) 5.0 GAP calc 4.0-15.0 N GLUCOSE (test code = GLU) 80 MG/DL 70-110 N BLOOD UREA NITROGEN (test code = BUN) 10 MG/DL 7-18 N GLOMERULAR FILTRATION RATE (test code = GFR) >=60 max estimate estGFR >60 CREATININE (test code = CREAT) 0.6 MG/DL 0.6-1.0 N CALCIUM (test code = CA) 8.9 MG/DL 8.5-10.1 N CBC W/AUTO [id number] 09:11:00* Test Item Value Reference Range Interpretation Comme nts WHITE BLOOD CELL (test code = WBC) 5.9 K/mm3 3.5-11.0 N RED BLOOD CELL (test code = RBC) 4.42 M/mm3 4.70-6.10 L HEMOGLOBIN (test code = HGB) 12.9 G/DL 10.4-14.9 N HEMATOCRIT (test code = HCT) 36.9 % 31.5-44.1 N MEAN CELL VOLUME (test code = MCV) 83.5 Fl 84.5-98.6 L MEAN CELL HGB (test code = MCH) 29.2 pg 27.0-34.2 N MEAN CELL HGB CONCETRATION (test code = MCHC) 35.0 G/DL 31.5-34.0 H RED CELL DISTRIBUTION WIDTH (test code = RDW) 12.8 SD 11.5-14.5 N PLATELET COUNT (test code = PLT) 281 K/mm3 150-450 N MEAN PLATELET VOLUME (test c ode = MPV) 8.40 fL 7.0-10.5 N NEUTROPHIL % (test code = NT%) 55.6 % 40-76 N IMMATURE GRANULOCYTE % (test code = IG%) 0.3 % 0.0-5.0 N LYMPHOCYTE % (test code = LY%) 35.8 % 20.5-51.1 N MONOCYTE % (test code = MO%) 5.9 % 1.7-9.3 N EOSINOPHIL % (test code = EO%) 1.9 % 0.0-6.0 N BASOPHIL % (test code = BA%) 0.5 % 0.0-2.0 N NUCLEATED RBC % (test code = NRBC%) 0.0 /100WBC% 0.0-1.0 N NEUTROPHIL # (test code = NT#) 3.3 K/mm3 1.8-7.6 N IMMATURE GRANULOCYTE # (test code = IG#) 0.02 x10 3/uL 0.00-0.03 N LYMPHOCYTE # (test code = LY#) 2.1 K/mm3 0.6-3.2 N MONOCYTE # (test code = MO#) 0.4 K/mm3 0.3-1.1 N EOSINOPHIL # (test code = EO#) 0.1 K/mm3 0.0-0.4 N BASOPHIL # (test code = BA#) 0.0 K/mm3 0.0-0.1 N NUCLEATED RBC # (test code = NRBC#) 0.0 K/mm3 0.0-0.1 N MANUAL DIFF REQUIRED (test c ode = MDIFF) NO DIFF/SCN CRITERIA UR HCG [id number] 09:10:00* Test Item Value Reference Range Interpretation Comme nts UR HCG QUAL (test code = HCGQLU) NEGATIVE NEGATIVE URINALYSIS [id number] 09:09:00* Test Item Value Reference Range Interpretation Comme nts UA GLUCOSE DIPSTICK (test code = DGLUU) NEGATIVE mg/dL NEG UA BILIRUBIN DIPSTICK (test code = BILU) NEGATIVE mg/dL NEG UA KETONE DIPSTICK (test code = KETU) NEGATIVE mg/dL NEG UA SPECIFIC GRAVITY (test code = SGU) >=1.030 SG 1.005-1.030 A UA BLOOD DIPSTICK (test code = KARL) NEGATIVE mg/DL NEG UA PH DIPSTICK (test code = ALEXANDRA) 6.0 pH UNITS 5.0-7.0 UA PROTEIN DIPSTICK (test code = PROU) NEGATIVE mg/dL NEG UA UROBILINIOGEN DIPSTICK (test code = URO) 1.0 mg/dL <2.0 UA NITRITE DIPSTICK (test code = ANAND) NEGATIVE SCREEN NEG UA LEUKOCYTE ESTERASE DIPSTICK (test code = LEUU) NEGATIVE Leuk/mcL NEGATIVE Urine Specimen Type: Clean CatchSTOMACH,[id number] 13:40:00* Test Item Value Reference Range Interpretation Comme nts STOMACH,BIOPSY (test code = STOMBX) RUN DATE: 08/02/21 [place] - Lab PAGE 1 RUN TIME: 1340 Specimen Inquiry RUN USER: INTERFACE PATIENT: SOPHY BERNAL LOC: CharisJanayGILBERTO U #: [id number] AGE/SX: 46/F ROOM: RE07/29/21[facility] DR: Erik Colon DO : 79 BED: DIS: STATUS: [facility] TLOC: SPEC #: [id number] RECD: 07/30/21 STATUS: REBECA TRACEY #: [id number] RASTA: 07/29/[address] [facility] [address]: Erik Colon DO ENTERED: 07/30/21 SP TYPE: BX STOMACH OTHR DR: Undefined Provider ORDERED: GROSS COPIES TO: Erik Colon DO [address] [place] [address] Undefined Provider PROCEDURES: GROSS (08/02/21-1143) TISSUES: 1. PYLORIC ANTRUM 2. G/E JUNCTION CLINICAL HISTORY COLLECTION DATE: 07/29/21 GERD FINAL DIAGNOSIS Pylorus antrum, biopsy: REACTIVE GASTROPATHY WITH MILD CHRONIC INFLAMMATION NO INTESTINAL METAPLASIA SEEN NEGATIVE FOR HELICOBACTER PYLORI BY GIEMSA STAIN NEGATIVE FOR MALIGNANCY G.E.-Junction, biopsy: ACUTE AND CHRONIC INFLAMMATION AND REACTIVE EPITHELIAL CHANGES, MIXED SQUAMOUS ESOPHAGEAL AND GASTRIC TYPE MUCOSA NEGATIVE FOR INTESTINAL METAPLASIA, DYSPLASIA, AND MALIGNANCY DMW/ D [id number], [id number] CONTINUED ON NEXT PAGE RUN DATE: 08/02/21 [facility] PAGE 2 RUN TIME: 1340 Specimen Inquiry RUN USER: INTERFACE SPEC #: [id number] PATIENT: SOPHY BERNAL #[id number] (Continued) MACROSCOPIC The first specimen is received in formalin, labeled with the patient's name, and identified as "pylorus antrum bx", and consists of ritchie biopsy tissue measuring 0.5 cm in length, submitted as (1). The second specimen is received in formalin, labeled with the patient's name, identified as "bx g.e.-junction", and consists of ritchie biopsy tissue measuring 0.3 cm, submitted as (2). GROSS PERFORMED AT [facility] [address] [place] [id number])[phone] MICROSCOPIC All of the stains, including any controls performed, stain appropriately. MICROSCOPIC PERFORMED AT [facility] [address] [place] [phone])[phone] PERFORMING SITE Diagnosis performed at: [facility], [place] [address] [place] [address] Signed SIGNATURE ON FILE Susan Mallory MD 08/02/21 1340 END OF REPORT CBC W/AUTO [id number] 15:41:00* Test Item Value Reference Range Interpretation Comme nts WHITE BLOOD CELL (test code = WBC) 6.5 K/mm3 4.5-12.5 N RED BLOOD CELL (test code = RBC) 4.84 mill/mm3 3.7-5.2 N HEMOGLOBIN (test code = HGB) 11.3 gram/dL 11.5-15.5 L HEMATOCRIT (test code = HCT) 38.2 % 36.0-46.0 N MEAN CELL VOLUME (test code = MCV) 78.9 fL 80-98 L MEAN CELL HGB (test code = MCH) 23.3 picogram 27.0-33.0 L MEAN CELL HGB CONCETRATION (test code = MCHC) 29.6 gram/dL 33.0-36.0 L RED CELL DISTRIBUTION WIDTH (test code = RDW) 14.0 % 11.6-16.2 N RED CELL DISTRIBUTION WIDTH SD (test code = RDW-SD) 39.5 fL 37.0-51.0 N PLATELET COUNT (test code = PLT) 370 K/mm3 150-450 N MEAN PLATELET VOLUME (test code = MPV) 8.5 fL 6.7-11.0 N NEUTROPHIL % (test code = NT%) 56.5 % 39.0-69.0 N IMMATURE GRANULOCYTE % (test code = IG%) 0.5 % 0.0-5.0 N LYMPHOCYTE % (test code = LY%) 35.6 % 25.0-55.0 N MONOCYTE % (test code = MO%) 5.1 % 0.0-10.0 N EOSINOPHIL % (test code = EO%) 1.7 % 0.0-5.0 N BASOPHIL % (test code = BA%) 0.6 % 0.0-1.0 N NUCLEATED RBC % (test code = NRBC%) 0.0 % 0-0 N NEUTROPHIL # (test code = NT#) 3.68 K/mm3 1.8-7.7 N IMMATURE GRANULOCYTE # (test code = IG#) 0.03 x10 3/uL 0-0.03 N LYMPHOCYTE # (test code = LY#) 2.32 K/mm3 1.0-5.0 N MONOCYTE # (test code = MO#) 0.33 K/mm3 0-0.8 N EOSINOPHIL # (test code = EO#) 0.11 K/mm3 0.0-0.5 N BASOPHIL # (test code = BA#) 0.04 K/mm3 0.0-0.2 N NUCLEATED RBC # (test code = NRBC#) 0.00 K/mm3 0.0-0.1 N MANUAL DIFF REQUIRED (test code = MDIFF) NO, ONLY SCAN NEEDED DIFFERENTIAL [id number] 15:41:00* Test Item Value Reference Range Interpretation Comme nts STAIN ACCEPTABILITY (test code = STN ACCEPTABLE) STAIN ACCEPTABLE CABOT RINGS (test code = CAB) MORPHOLOGY COMMENT (test code = MOC) PLATELET ESTIMATE (test code = PLTEST) ADEQUATE PLATELET MORPHOLOGY (test code = PLTMORPH) NORMAL HYPOCHROMIA (test code = HYPO) 1+ ANISOCYTOSIS (test code = ANISO) 1+ URINALYSIS [id number] 15:22:00* Test Item Value Reference Range Interpretation Comme nts UA COLOR (test code = COLU) Light-Yellow YELLOW UA APPEARANCE (test code = APPU) CLEAR CLEAR IS THE SAMPLE FROM ER OR L&D? N IF THE ANSWER IS NO,PLEASE DOCUMENT TWO RN SIGNATURES HERE- by [id number] 07/29/21 1520 UA GLUCOSE DIPSTICK (test code = DGLUU) NEGATIVE mg/dL NEGATIVE UA BILIRUBIN DIPSTICK (test code = BILU) NEGATIVE mg/dL NEGATIVE UA KETONE DIPSTICK (test code = KETU) NEGATIVE mg/dL NEGATIVE UA SPECIFIC GRAVITY (test code = SGU) 1.021 1.001-1.035 UA BLOOD DIPSTICK (test code = KARL) Negative mg/dL NEGATIVE UA PH DIPSTICK (test code = ALEXANDRA) 6.5 5.0-8.0 UA PROTEIN DIPSTICK (test code = PROU) NEGATIVE mg/dL NEGATIVE UA UROBILINIOGEN DIPSTICK (test code = URO) Normal mg/dL NEGATIVE UA NITRITE DIPSTICK (test code = ANAND) NEGATIVE NEGATIVE UA LEUKOCYTE ESTERASE W REFLEX (test code = LEUUR) NEGATIVE Annabelle/uL NEGATIVE UA WBC (test code = WBCU) 0-5 per HPF 0-5 UA RBC (test code = RBCU) 0-2 #/HPF 0-5 UA EPITHELIAL CELLS (test code = EPIU) FEW per HPF FEW UA BACTERIA (test code = BACU) FEW #/HPF NONE Urine Source? MidstreamCOMPREHENSIVE METABOLIC [id number] 15:17:00* Test Item Value Reference Range Interpretation Comme nts SODIUM (test code = NA) 138 mmol/L 136-145 N POTASSIUM (test code = K) 3.5 mmol/L 3.5-5.1 N CHLORIDE (test code = CL) 105.0 mmol/L 98-107 N CARBON DIOXIDE (test code = CO2) 28.0 mmol/L 21-32 N ANION GAP (test code = GAP) 8.5 10-20 L GLUCOSE (test code = GLU) 84 mg/dL 74-106 N BLOOD UREA NITROGEN (test code = BUN) 7 mg/dL 7-18 N GLOMERULAR FILTRATION RATE (test code = GFR) > 60 mL/min See_Comment Estimated GFR by using Modified MDRD formula.Chronic kidney disease is defined as either kidney damageor GFR <60 mL/min/1.73 m2 for >3 months. [Automated message] The system which generated this result transmitted reference range: >=60. The reference range was not used to interpret this result as normal/abnormal. CREATININE (test code = CREAT) 0.70 mg/dL 0.55-1.02 N Note change in reference range due to change in reagent. BUN/CREATININE RATIO (test code = BUN/CREA) 10.0 10-20 N TOTAL PROTEIN (test code = PROT) 8.3 gram/dL 6.4-8.2 H ALBUMIN (test code = ALB) 4.1 g/dL 3.4-5.0 N GLOBULIN (test code = GLOB) 4.2 gram/dL 2.7-4.2 N ALBUMIN/GLOBULIN RATIO (test code = A/G) 1.0 0.75-1.50 N CALCIUM (test code = CA) 9.1 mg/dL 8.5-10.1 N BILIRUBIN TOTAL (test code = BILT) 0.50 mg/dL 0.0-1.0 N SGOT/AST (test code = AST) 24 IUnit/L 15-37 N SGPT/ALT (test code = ALT) 76 IUnit/L 12-78 N ALKALINE PHOSPHATASE TOTAL (test code = ALKP) 112 IUnit/L 45-117 N Note change in reference range due to change in reagent. PROTHROMBIN [id number] 14:54:00* Test Item Value Reference Range Interpretation Comme nts PROTHROMBIN TIME PATIENT (test code = PTP) 12.0 seconds 9.0-14.0 N INTERNATIONAL NORMAL RATIO (test code = INR) 1.1 0.8-1.2 N The therapeutic range for oral anticoagulant therapy formost indications is an international normalized ratio (INR)of between 2.0 and 3.0. The recommended therapeutic INRrange for various clinical situations is listed below: Clinical Situation INR range Pulmonary embolism treatment (2.0-3.0)Venous thrombosis treatmentVenous thrombosis prophylaxis (high risk surgery)Prevention of systemic embolism from: Acute myocardial infarction Valvular heart disease Atrial fibrillation Mechanical prosthetic heart valves (2.5-3.5) IS PATIENT ON ANTICOAGULANTS? NTHROMBOPLASTIN TIME [id number] 14:54:00* Test Item Value Reference Range Interpretation Comme nts THROMBOPLASTIN TIME PARTIAL (test code = PTT) 32.9 seconds 23.0-37.0 N IS PATIENT ON ANTICOAGULANTS? NCOVID 19 Asymptomatic IH [id number] 13:54:00* Test Item Value Reference Range Interpretation Comme nts COVID 19 Asymptomatic IH AG (test code = COVNONPUIAG) NEGATIVE NEGATIVE Notes Date/Time Note Provider Source 2022-07-28 14:56:00 [id number] [place] [address] PATIENT NAME: SOPHY BERNAL ADMIT DATE: 07/28/22 ACCOUNT NO: [id number] ROOM NO: [facility] AGE: 47 REPORT TYPE: OPERATIVE REPORT SEX: F ADMITTING PHYSICIAN: Krysta Dumont MD ATTENDING PHYSICIAN: Krysta Dumont MD OPERATION DATE: PREOPERATIVE DIAGNOSES: Stage II anterior and posterior wall defects, perineal body defect. POSTOPERATIVE DIAGNOSES: Stage II anterior and posterior wall defects, perineal body defect post and posterior enterocele PROCEDURES PERFORMED: Anterior repair and bilateral sacrospinous ligament fixation, colpopexy with biological graft augmentation; posterior wall, posterior enterocele and perineal body defect repairs and cystoscopy. SURGEON: Krysta Dumont M.D. DOMESTIC VIOLENCE ADVOCATE: Rajan Sharpe. TYPE OF ANESTHESIA: General endotracheal. FINDINGS: POP-Q is as follows, 0+1 -5 5, thin, 7 0 +1 and a posterior enterocele was detected on dissection of the posterior wall, which was repaired accordingly. There was a site specific defect in the right lateral rectovaginal septum due to the detachment of this from the sulcus as well as from the perineal body, which was repaired. COMPLICATIONS: None. DRAINS: Huston catheter. Vaginal packing was left in place. SPECIMENS: None. ESTIMATED BLOOD LOSS: 100 mL URINE OUTPUT: 150. FLUIDS: 1500. IMPLANTS: [place] dermis graft 8 x 6 was placed. Approach was vaginal. Preoperative antibiotics were given. THE PATIENT'S DISPOSITION: She will be transferred to the med/surg floor for overnight admission and discharged after voiding trials in the morning. Counts PATIENT NAME: SOPHY BERNAL were correct. INDICATIONS: The patient is a 47-year-old female with symptomatic vaginal prolapse. She is status post hysterectomy in 2018. After discussing all the benefits, risks and alternatives of prolapse management including pessary and surgical management, which includes a laparoscopic repair with a Y mesh or vaginal repair with and without biologic graft augmentation. The patient was consented for a vaginal repair with a graft. She did not have any occult ELENA or overt symptoms of incontinence, so there was no role for a mid urethral sling. DESCRIPTION OF PROCEDURE: After the patient was consented in the preoperative area today, she was taken back to the OR, placed in supine fashion on the operating table. SHE HAS ALLERGY TO PENICILLIN WITH HIVES; however, seems to have tolerated Keflex in the past, so we proceeded with giving her 2 grams of Ancef, which she tolerated well. After she was placed in a supine fashion on the operating table general anesthesia was given. She was placed in the dorsal lithotomy position using Manny stirrups. Lower abdomen, vulva, vagina and medial thighs were prepped and draped in a sterile fashion. A Huston was placed to drain the bladder and retracted after clamping it superiorly. A POP-Q was done to examine her defects and once the defects were found as dictated above plan was to proceed with the anterior repair with the graft augmentation and colpopexy as discussed. The distal connective tissue on the anterior wall was still intact; however, this seems to have detached from the apex, defect appears to be found in the posterior wall as well. After the anterior wall was grasped in the midline right below the UVJ all the way to the level of the apex. Dilute vasopressin was injected on both sides for hydrodissection. An incision was made with a 15 blade and dissection carried with a Metzenbaum scissors all the way to the distal and proximal part of the midline. Then, the bladder was dissected off the vaginal epithelium on each side, staying underneath the connective tissue. At the apex this was taken to the paravaginal space on each side, first dissection performed the right side. Once I was in the paravaginal space, identified the ischial spine and went into the perirectal space. The sacrospinous ligament was cleaned by sweeping medial and posterior to the spine. Once this was cleaned up the white line was clean by going anterior and lateral to the spine. Once this dissection was laid out, then went on the opposite side and did a similar dissection to expose the sacrospinous ligament on the white line. The bladder was dissected off, the cuff adequately enough for me to be able to place my permanent sutures anteriorly distally. Dissection was performed all the way to the bladder neck. The connector tissue was identified and preserved in this area so that the distal graft could be attached to this. An 8 x 6 axis dermis graft was taken and was shaped in a trapezoid with 8 cm as the interspinous length, 5 cm in the distal area and then entered posteriorly. I left about 5 cm and had an indentation on the graft at the level of the vault attachment so that there is some room for stretching the graft and the interspinous line. PATIENT NAME: SOPHY BERNAL A 0 Prolene sutures were taken on the Capio device and placed in the mid ligament slightly closer to the ligament, may be about 2-3 fingerbreadths away from the ischial spine on the right and left. These were retracted superiorly and about two fingerbreadths away from the ischial spine laterally. The PDS sutures were placed with a Capio and retracted and held on clamps as well. Three 2-0 Prolene sutures were placed at the proximal part of the vaginal vault right below the bladder without going through the vaginal epithelium. Care was taken to not leave a permanent suture on the exposed part of the canal. These [TIME: 06:37] were held in clamps. Then, 2-0 PDS sutures were placed at the bladder neck through the connective tissue, which was robust in the midline distally, one on the center, two lateral sutures were placed, careful not to go too far out towards the ureters at the trigone. The trapezoid graft was soaked according to package instructions and was brought in. The 3 Prolene sutures were attached in the proximal midline, 3 PDS sutures attached distal midline, all these were tied. Then the sacrospinous sutures were placed on the graft at the sites that were identified for this, a knot was placed on the graft for me to use this as a edith. On each side, the PDS sutures were estimated to be about 3 cm from the proximal sacrospinous attachment and these areas were marked and the PDS sutures were passed through. The vaginal epithelial closure was started with a 2-0 Vicryl from the apex. This was held and left on a needle forklift driver. Then, the sacrospinous sutures were tied down, taking the graft all the way to the ligament without leaving a bridge. Both these sutures were tied down and the PDS sutures were tied. There was an excellent support in the paravaginal area, which was actually the most significant defect for this patient and with the reattachment to the precervical fascia point B was also able to be lifted at least 2 -3. Slight amount of, may be 0.5 cm of the graft was trimmed distally in the midline. Then, after all attachments were done closure was completed on the vaginal epithelium with a 2-0 Vicryl in a continuous running fashion. I did not trim the vaginal epithelium, so there was a slight saggy epithelium over the graft. The graft appeared to be tension free; however, tight enough. Posteriorly attention was directed to the vestibule. Two Allis clamps were placed on either side of the midline at the hymenal remnants. Then the posterior compartment and the perineum were all injected with dilute vasopressin, 20 mL was injected. A triangle skin incision made on the perineum and epithelium was taken down leaving the underlying connective tissues intact. The lateral tissues were dissected to expose the deep transverse perineal scar in this area as well as the distal posterior wall. Incision at the top triangle was made in the distal one-half of the posterior wall. The epithelium was taken out. The rectovaginal septum was dissected away from the overlying vaginal epithelium as well as lateral donaldson all the way to the sulci on both sides. Dissection was carried all the way to the apex as well. Enterocele was only slight and was right lateral at the apex. This was most likely due to the detachment of the site specific defect, but I identified, this was closed with the help of a 3-0 Monocryl in a continuous running fashion. Once the enterocele was corrected, then the rectovaginal septum that was avulsed was brought PATIENT NAME: SOPHY BERNAL together with the right lateral wall using a 2-0 PDS continuous running suture all the way down to the perineal body. The perineal body was reconstructed with the help of interrupted 2-0 Vicryl sutures. Then, the PDS suture was used to attach the posterior rectovaginal septum to the perineal body and this suture was ended here. The perineal body reconstruction was done with 3 interrupted 2-0 Vicryls in 2 rows. There was excellent closure and support here. Then vaginal epithelium was trimmed in about 0.5 cm. Then, closure was performed with a continuous running 2-0 Vicryl stitch. A 3-0 Vicryl was used to close in the subcutaneous and subcuticular fashion on the perineum. Rectal exam was performed. No evidence of any trauma or foreign body in the rectum, both at the level of the distal rectal canal and at the sacrospinous sutures. Huston was removed. Cystoscopy was performed and both ureteric orifices were well visualized. There were good jets of urine from both sides. No evidence of any foreign body or trauma to the bladder. Bladder was drained. Huston was replaced. Vaginal packing was placed. She was recovered from anesthesia and taken to the PACU in stable condition. EBL was as dictated 100. Her was debriefed throughout her procedure and she will be transferred to the recovery room and subsequent to which she will be taken to the med/surg floor for overnight observation. She will be discharged home with or without a catheter based on her voiding trials tomorrow and she has a 1-week followup appointment with me in the office. Dictated By: Krystaozzy Dumont MD Date Dictated: 07/28/2022 14:56:16 Date Transcribed: 07/28/2022 22:08:38 HANNY/QUINN Receipt ID: [id number] Authenticated and Edited by Krysta Dumont MD On 09/08/22 12:49:55 PM at 1251 PATIENT NAME: SOPHY BERNAL [facility] 2022-07-28 12:14:00 [facility] ([facility]) Brief Op Note REPORT#:[id number] REPORT STATUS: Signed DATE:07/28/22 TIME:1214 PATIENT: SOPHY BERNAL UNIT #: [id number] ROOM/BED: [place] [id number] : [birth year] AGE: 47 SEX: F ATTEND: Krysta Dumont MD ADM AUTHOR: Krysta Dumont MD * ALL edits or amendments must be made on the electronic/computer document * Op/Inv Proc Note - Brief Pre-procedure diagnosis: stage 2 anterior and posterior wall defects, perineal body defect Post-procedure diagnosis: same as pre procedure dx, posterior enterocele, mild vault prolapse Procedures performed: Anterior repair and bilateral SSLF colpopexy w biological graft augmentation, Posterior wall, enterocele, perineal body defect repairs, Cystoscopy Primary Surgeon: julia Seasonal Sales Associate(s): rajan Anesthesia: general anesthesia Findings: 0/+1/-5/5/thin/7/0/+1/na, posterior enterocele, 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 Complications: none Estimated blood loss in ml's: 100 Specimens removed/altered: none Drain(s): Huston Catheter Placed Implant(s): axis dermis Fluids: 1500 Urine output: 150 Approach: vag Disposition: MEDSURG Counts: Sponge count: correct Instrument count: correct Needle count: correct at 1219 RPT #: [id number] END OF REPORT [facility] 2021-07-29 17:15:00 [id number] [facility] PATIENT NAME: SOPHY BERNAL ADMIT DATE: 07/29/21 ACCOUNT NO: [id number] ROOM NO: AGE: 46 REPORT TYPE: ENDOSCOPY REPORT SEX: F DATE OF : [birth year] ADMITTING PHYSICIAN: ATTENDING PHYSICIAN:Erik Colon I DO Patient Name: Sophy Bernal Attending MD: Erik Colon MD Procedure Date: 07/29/2021 5:15 PM Date of : 1975 Procedure: Upper GI endoscopy Pre Procedure Diagnosis: Suspected esophageal reflux, Esophageal reflux, Gastro-esophageal reflux disease Assistants: Erik Colon MD Anesthesia: Monitored Anesthesia Care Procedure: Pre-Anesthesia Assessment: - Prior to the procedure, a History and Physical was performed, and patient medications and allergies were reviewed. The patient's tolerance of previous anesthesia was also reviewed. The risks and benefits of the procedure and the sedation options and risks were discussed with the patient. All questions were answered, and informed consent was obtained. Prior Anticoagulants: The patient has taken no anticoagulant or antiplatelet agents except for aspirin. ASA Grade Assessment: III - A patient with severe systemic disease. After reviewing the risks and benefits, the patient was deemed in satisfactory condition to undergo the procedure. - The risks and benefits of the procedure and the sedation options and risks were discussed with the patient. All questions were answered and informed consent was obtained. - Patient identification and proposed procedure were verified prior to the procedure by the physician, the nurse, the anesthesiologist and the pharmaceutical specialty representative. The procedure was verified in the endoscopy area. - Airway Examination: normal oropharyngeal airway and neck mobility. - ASA Grade Assessment: III - A patient with severe systemic disease. - ASA Grade Assessment: III - A patient with severe systemic disease. - The risks and benefits of the procedure and the PATIENT NAME: SOPHY BERNAL sedation options and risks were discussed with the patient. All questions were answered and informed consent was obtained. - Patient identification and proposed procedure were verified prior to the procedure by the physician and the nurse. The procedure was verified in the pre-procedure area. - Airway Examination: Mallampati Class III (part of the uvula and soft palate visualized). - Using IV propofol under the supervision of an anesthesiologist was determined to be medically necessary for this procedure based on review of the patient's medical history, medications, and prior anesthesia history. The benefits, risks, and alternatives to the procedure were discussed and informed consent was obtained from the patient. I've assesed the patient on this date and reviewed the medical history, drug history, and previous anesthesia experience. After obtaining informed consent, the scope was passed under direct vision. Throughout the procedure, the patient's blood pressure, pulse, and oxygen saturations were monitored continuously.s were monitored continuously. The Endoscope was introduced through the mouth, and advanced to the second part of duodenum. None The Endoscope was introduced through the mouth, and advanced to the second part of duodenum. The Endoscope was introduced through the and advanced to the second part of duodenum. The upper GI endoscopy was accomplished without difficulty. The patient tolerated the procedure well. Post Procedure Findings: Complications: No immediate complications. Estimated Blood Loss: Estimated blood loss was minimal. Post Procedure Diagnosis: - GE Junction and Antrum Biopsy specimens collected. - Biopsies were taken with a cold forceps for histology. - Normal oropharynx. Normal Esophagus. Some Reflux seen. Noraml [place]. No Hiatal Hernia. Recommendation: - Await pathology results. - Resume previous diet. - Written discharge instructions were provided to the patient. Dr. Erik Colon Erik Colon MD 07/30/2021 3:02:06 PM This report has been signed electronically. Number of Addenda: 0 Note Initiated On: 07/29/2021 5:15 PM PATIENT NAME: SOPHY BERNAL Procedure Code(s): --- Professional --- 35802, Esophagogastroduodenoscopy, flexible, transoral; diagnostic, including collection of specimen(s) by brushing or washing, when performed (separate procedure) CPT copyright 2020 [employer]. All rights reserved. The codes documented in this report are preliminary and upon structures mechanic review may be revised to meet current compliance requirements. Scope In: Scope Out: Provation {[id number]}.pdf ProVation FT PDF at 1502 PATIENT NAME: SOPHY BERNAL [facility]
[2025-08-16] MEDS ORDERED: NA CHLORIDE 0.9% 1,000 ML ONE ×2 (08:21→10:07)
[2025-08-16 08:35] LABS: Absolute Lymphocytes (CBC) 1.8 K/uL (0.7-4.9); Hematocrit 35.0 % (36.0-45.0); Hemoglobin 12.2 g/dL (12.0-15.0); MCH 29.7 pg (27.0-35.0); MCHC 34.8 g/dL (32.0-36.0); MCV 85.5 fL (80-100); MPV 6.8 fL (7.6-11.3); Nucleated RBC Absolute Count 0.0 (0-0); Nucleated Red Blood Cells % 0.0 % (0-0); RBC Red Blood Cell Count 4.09 M/uL (3.86-4.86); White Blood Count 7.40 thou/uL (4.3-10.9)
[2025-08-16 08:54] LABS: AST/SGOT 11 U/L (15-37); Albumin 3.3 g/dL (3.4-5.0); Albumin/Globulin Ratio 1.1 (1.1-1.8); Alkaline Phosphatase 43 U/L (45-117); Anion Gap 8.1 mEq/L (5.0-15.0); BUN Blood Urea Nitrogen 9 mg/dL (7-18); Bilirubin Indirect, Calculated 0.5 mg/dL (0.2-0.8); Globulin 3.1 g/dL (2.3-3.5); Glucose Level 86 mg/dL (74-106); Magnesium 1.7 mg/dL (1.6-2.4); Potassium 3.1 mEq/L (3.5-5.1); Troponin High Sensitivity 5.0 pg/mL (<58.9)
[2025-08-16 08:56] LABS: ALT/SGPT < 14 U/L (13-56)
[2025-08-16] MEDS ORDERED: POTASSIUM CL SA 10 MEQ TAB PO ONE (09:13)
--- NOTE | 2025-08-16 09:17 | RAD REPORT ---
EXAMINATION: ONE VIEW CHEST XR CLINICAL INDICATION: PAIN TECHNIQUE: Frontal chest projection is submitted. Examination is limited by patient positioning and t echnique. COMPARISON: 05/27/2021 FINDINGS: Mild linear atelectasis is seen medial left lung base. The lungs are otherwise clear. The heart is no rmal in size. No displaced fractures identified.
--- NOTE | 2025-08-16 09:19 | RAD REPORT ---
EXAM: CT brain without contrast HISTORY: Syncope;Trauma COMPARISON: None TECHNIQUE: Multiple contiguous axial images were obtained and a CT of the brain without contrast. Sag ittal and coronal reformats were performed. One or more of the following dose reduction techniques were used: Automated exposure control, adjust ment of the mA and/or kV according to patient size, and/or iterative reconstruction. FINDINGS: No evidence of hydrocephalus, intracranial hemorrhage, or extra-axial fluid collection. The brain is normal in morphology. No evidence of midline shift or areas of brain edema. The calvarium is intact. The visualized paranasal sinuses and mastoid air cells are essentially clear . IMPRESSION: No evidence of acute intracranial abnormality.
--- NOTE | 2025-08-16 11:32 | EDPHYS ---
Physician Documentation [facility] Name: Sophy Bernal Age: 50 yrs Sex: Female : 1975 Arrival Date: 08/16/2025 Time: 08:07 Bed 8 Private MD: ED Physician Vince Clark HPI: 08/16 08:48 This 50 yrs old Female presents to ER via EMS with complaints of Syncope. kb 08:48 Pt is a 50 year old female who presents for syncope that occurred this morning. EMS kb reports pt got out of bed, had a syncopal episode upon standing, fell back and hit her head. States family got pt up and she had another possible episode of syncope before they got her on the bed. Reports pt is orthostatic positive (systolic 111 laying, 70s standing). Pt reports fatigue and nausea, is A\T\Ox4. Historical: - Allergies: 08:16 Erythromycin; af3 08:16 PENICILLINS; af3 - PMHx: 08:16 Anemia; Hypertension; Vertigo; af3 - Immunization history:: Adult Immunizations unknown. - Infectious Disease History:: Denies. - Social history:: Smoking status: Patient denies any tobacco usage or history of. ROS: 08:28 Constitutional: As per HPI kb Exam: 08:28 Constitutional: This is a well developed, well nourished patient who is awake, alert, kb and in no acute distress. Head/Face: Normocephalic, atraumatic. ENT: Moist Mucous membranes Cardiovascular: Regular rate Respiratory: Respirations even and unlabored. No increased work of breathing. Talking in full sentences Abdomen/GI: Soft, non-tender. No distention Skin: Warm, dry with normal turgor. Normal color. MS/ Extremity: Pulses equal, no cyanosis. Neurovascular intact. Full, normal range of motion. Neuro: Awake and alert, GCS 15, oriented to person, place, time, and situation. 08:28 ECG was reviewed by the Attending Physician. Vital Signs: 08:12 BP 107 / 72; Pulse 73; Resp 18; Pulse Ox 99% on R/A; Weight 60.78 kg; Height 4 ft. 11 af3 in. ; 08:55 BP 113 / 66; Pulse 86; Resp 18; Pulse Ox 99% ; af3 09:19 BP 109 / 67; Pulse 73; Resp 18; Pulse Ox 98% on R/A; af3 09:46 BP 114 / 72; Pulse 70; Resp 18; Pulse Ox 100% on R/A; af3 10:53 BP 126 / 72; Pulse 102; Resp 18; Pulse Ox 100% on R/A; af3 11:22 BP 125 / 75 Supine; Pulse 91; af3 11:22 BP 121 / 65 Sitting; Pulse 80; af3 11:22 BP 109 / 72 Standing; Pulse 91; af3 12:23 BP 123 / 75; Pulse 91; Resp 18; Pulse Ox 99% on R/A; af3 13:04 BP 105 / 64; Pulse 77; Resp 18; Pulse Ox 100% on R/A; af3 13:41 BP 105 / 64; Pulse 91; Resp 18; Pulse Ox 100% on R/A; af3 08:12 Body Mass Index 27.06 (60.78 kg, 149.86 cm) af3 MDM: 08:12 Medical Screening Exam initiated kb 08:50 Data reviewed: vital signs, nurses notes. kb 11:28 Differential Diagnosis: cardiac arrhythmia, idiopathic syncope, vasovagal episode, kb dehydration, abnormal electrolytes. Consideration of Admission/Observation Patient was admitted/placed on observation. Escalation of care including admission/observation considered. Management of patient was discussed with the following: Hospitalist: hospitalist team, pt accepted for admission under Dr Clark. Historians other than the Patient: EMS: [facility]. Counseling: I had a detailed discussion with the patient and/or guardian regarding the historical points, exam findings, and any diagnostic results supporting the discharge/admit diagnosis, lab results, radiology results, the need for further work-up and treatment in the hospital. 13:14 ED course: After hospitalist spoke with pt, she does not want to stay in the hospital. kb Pt states she has a cruise to go on tomorrow and would like to go home. . 08/16 08:18 Order name: Basic Metabolic Panel; Complete Time: 09:00 kb 08/16 08:18 Order name: CBC with Diff; Complete Time: 08:40 kb 08/16 08:18 Order name: Hepatic Function; Complete Time: 09:00 kb 08/16 08:18 Order name: Magnesium; Complete Time: 09:00 kb 08/16 08:18 Order name: Troponin High Sensitivity; Complete Time: 09:00 kb 08/16 08:18 Order name: UA Rfx Zhao Cult if indicated; Complete Time: 12:09 kb 08/16 12:15 Order name: Urine Culture EDCT 08/16 12:15 Order name: Urine Culture EDCT 08/16 08:18 Order name: CT Head Brain wo Cont; Complete Time: 09:26 kb 08/16 08:18 Order name: Chest Single View XRAY; Complete Time: 09:19 kb 08/16 08:18 Order name: Cardiac monitoring; Complete Time: : kb 08/16 08:18 Order name: EKG - Nurse/Tech; Complete Time: : kb 08/16 08:18 Order name: IV Saline Lock; Complete Time: : kb 08/16 08:18 Order name: Labs collected and sent; Complete Time: : kb 08/16 08:18 Order name: NPO; Complete Time: : kb 08/16 08:18 Order name: O2 Per Protocol; Complete Time: : kb 08/16 08:18 Order name: O2 Sat Monitoring; Complete Time: : kb 08/16 11:16 Order name: Orthostatics; Complete Time: 11:22 kb EC:28 Rate is 74 beats/min. Rhythm is regular. QRS [place] is Normal. OR interval is normal at kb 176 msec. QRS interval is normal at 84 msec. QT interval is normal at 455 msec. Administered Medications: 08:29 Drug: NS 0.9% IV 1000 ml IV at 1000 ml once; to be given as a bolus over 60 minutes af3 Route: IV; Rate: 1000 ml; Site: right antecubital; 10:07 Follow up: Response: No adverse reaction; IV Status: Completed infusion; IV Intake: af3 1000ml 09:17 Drug: Potassium Chloride PO 40 mEq PO once Route: PO; af3 10:07 Follow up: Response: No adverse reaction af3 10:08 Drug: NS 0.9% IV 1000 ml IV at 1000 ml once; to be given as a bolus over 60 minutes af3 Route: IV; Rate: 1000 ml; Site: right antecubital; 11:30 Follow up: Response: No adverse reaction; IV Status: Completed infusion; IV Intake: af3 1000ml Disposition: 15:21 Co-signature as Attending Physician, Vince Clark MD I reviewed the patient's care rn provided by the Advanced Practice Provider and agree with the diagnosis and treatment plan. Disposition Summary: 08/16/25 13:15 Discharge Ordered Notes: Location: Home(08/16/25 13:15) kb Condition: Stable(08/16/25 13:15) kb Diagnosis - Syncope kb - Orthostatic hypotension(08/16/25 13:15) kb - UTI/ Urinary tract infection, site not specified kb Followup: kb - With: Emergency Department - When: As needed - Reason: Worsening of condition Followup: kb - With: Private Physician - When: 2 - 3 days - Reason: Recheck today's complaints, Continuance of care, Re-evaluation by your physician Discharge Instructions: - Discharge Summary Sheet kb - Orthostatic Hypotension kb - Urinary Tract Infection, Adult, [id number] kb - Syncope, [id number] kb Forms: - Medication Reconciliation Form kb - Antibiotic Education kb - Prescription Opioid Use kb - Patient Portal Instructions kb - Leadership Thank You Letter kb Prescriptions: - Macrobid 100 mg Oral Capsule - take 1 capsule ORAL route every 12 hours for 7 days; 14 capsule; Refills: 0, kb Product Selection Permitted Signatures: Dispatcher [employer] EDMS Negrita Rubio, WHEAT CLEANER-C WHEAT CLEANER-Ckb Vince Clark MD MD rn Marie Mendes RN RN af3 Corrections: (The following items were deleted from the chart) 08:18 08:18 BASIC METABOLIC PANEL+C.LAB.BRZ ordered. EDMS EDMS 08:18 08:18 CBC+H.LAB.BRZ ordered. EDMS EDMS 08:18 08:18 HEPATIC FUNCTION+C.LAB.BRZ ordered. EDMS EDMS 08:18 08:18 MAGNESIUM+C.LAB.BRZ ordered. EDMS EDMS 08:18 08:18 Troponin High Sensitivity+C.LAB.BRZ ordered. EDMS EDMS 08:18 08:18 UA Rfx Zhao Cult if indicated+U.LAB.BRZ ordered. EDMS EDMS 08:18 08:18 Head Brain Wo Cont+CT.RAD.BRZ ordered. EDMS EDMS 08:18 08:18 Chest Single View+RAD.RAD.BRZ ordered. EDMS EDMS 13:15 11:31 Observation kb kb 13:15 11:31 Nirmal Clark kb kb 13:15 11:31 Telemetry/MedSurg (observation) kb kb 13:15 11:31 Stable kb kb 13:15 11:31 new kb kb 13:15 11:31 are unchanged kb kb 13:15 11:31 Standard kb kb 13:15 11:31 kb kb 13:15 11:31 Syncope kb kb 13:15 11:31 Orthostatic hypotension kb kb
--- NOTE | 2025-08-16 11:32 | ER ---
Nurse's Notes [facility] Name: Sophy Bernal Age: 50 yrs Sex: Female : 1975 Arrival Date: 08/16/2025 Time: 08:07 Bed 8 Private MD: Diagnosis: Syncope;Orthostatic hypotension;UTI/ Urinary tract infection, site not specified Presentation: 08/16 08:12 Chief complaint: EMS states: daughter called EMS, pt woke up at 7am with syncope, fell af3 from standing, hit back of head with LOC for 2 minutes, lethargic and weak when standing. AOx4, orthostatic when standing systolic 75. Coronavirus screen: At this time, the client does not indicate any symptoms associated with coronavirus-19. Ebola Screen: No symptoms or risks identified at this time. Initial Sepsis Screen: Does the patient meet any 2 criteria? No. Patient's initial sepsis screen is negative. Does the patient have a suspected source of infection? No. Patient's initial sepsis screen is negative. Risk Assessment: Do you want to hurt yourself or someone else? Patient reports no desire to harm self or others. Onset of symptoms was August 16, 2025. 08:12 Method Of Arrival: EMS: [facility] af3 08:12 Acuity: CARMINE 3 af3 Triage Assessment: 08:34 General: Appears in no apparent distress. uncomfortable, well groomed, well developed, af3 Behavior is calm, cooperative, appropriate for age. Pain: Denies pain. Neuro: Level of Consciousness is awake, alert, obeys commands, Oriented to person, place, time, situation, Appropriate for age. Cardiovascular: Patient's skin is warm and dry. Rhythm is sinus rhythm. Respiratory: Airway is patent Respiratory effort is even, unlabored, Respiratory pattern is regular, symmetrical. Historical: - Allergies: 08:16 Erythromycin; af3 08:16 PENICILLINS; af3 - PMHx: 08:16 Anemia; Hypertension; Vertigo; af3 - Immunization history:: Adult Immunizations unknown. - Infectious Disease History:: Denies. - Social history:: Smoking status: Patient denies any tobacco usage or history of. Screenin:30 [facility] ED Fall Risk Assessment (Adult) History of falling in the last 3 months, af3 including since admission Yes- single mechanical fall (1 pt) Confusion or Disorientation No (0 pts) Intoxicated or Sedated No (0 pts) Impaired Gait No (0 pts) Mobility Assist Device Used No (0 pt) Altered Elimination No (0 pt) Score/Fall Risk Level 0 - 2 = Low Risk Oriented to surroundings, Maintained a safe environment, Educated pt \T\ family on fall prevention, incl call for assistance when getting out of bed. Abuse screen: Denies threats or abuse. Denies injuries from another. Nutritional screening: No deficits noted. Tuberculosis screening: No symptoms or risk factors identified. Assessment: 08:29 General: see triage assessment . af3 08:55 Reassessment: No changes from previously documented assessment. Patient and/or family af3 updated on plan of care and expected duration. Pain level reassessed. Patient is alert, oriented x 3, equal unlabored respirations, skin warm/dry/pink. 09:46 Reassessment: Patient appears in no apparent distress at this time. No changes from af3 previously documented assessment. Patient and/or family updated on plan of care and expected duration. Pain level reassessed. Patient is alert, oriented x 3, equal unlabored respirations, skin warm/dry/pink. 10:53 Reassessment: Patient appears in no apparent distress at this time. No changes from af3 previously documented assessment. Patient and/or family updated on plan of care and expected duration. Pain level reassessed. Patient is alert, oriented x 3, equal unlabored respirations, skin warm/dry/pink. 11:25 Reassessment: Patient appears in no apparent distress at this time. No changes from af3 previously documented assessment. Patient and/or family updated on plan of care and expected duration. Pain level reassessed. 12:20 Reassessment: Patient appears in no apparent distress at this time. No changes from af3 previously documented assessment. Patient and/or family updated on plan of care and expected duration. Pain level reassessed. 13:04 Reassessment: Patient appears in no apparent distress at this time. No changes from af3 previously documented assessment. Patient and/or family updated on plan of care and expected duration. Pain level reassessed. Patient is alert, oriented x 3, equal unlabored respirations, skin warm/dry/pink. 13:30 Reassessment: Patient appears in no apparent distress at this time. No changes from af3 previously documented assessment. Patient and/or family updated on plan of care and expected duration. Pain level reassessed. Patient is alert, oriented x 3, equal unlabored respirations, skin warm/dry/pink. Vital Signs: 08:12 BP 107 / 72; Pulse 73; Resp 18; Pulse Ox 99% on R/A; Weight 60.78 kg; Height 4 ft. 11 af3 in. ; 08:55 BP 113 / 66; Pulse 86; Resp 18; Pulse Ox 99% ; af3 09:19 BP 109 / 67; Pulse 73; Resp 18; Pulse Ox 98% on R/A; af3 09:46 BP 114 / 72; Pulse 70; Resp 18; Pulse Ox 100% on R/A; af3 10:53 BP 126 / 72; Pulse 102; Resp 18; Pulse Ox 100% on R/A; af3 11:22 BP 125 / 75 Supine; Pulse 91; af3 11:22 BP 121 / 65 Sitting; Pulse 80; af3 11:22 BP 109 / 72 Standing; Pulse 91; af3 12:23 BP 123 / 75; Pulse 91; Resp 18; Pulse Ox 99% on R/A; af3 13:04 BP 105 / 64; Pulse 77; Resp 18; Pulse Ox 100% on R/A; af3 13:41 BP 105 / 64; Pulse 91; Resp 18; Pulse Ox 100% on R/A; af3 08:12 Body Mass Index 27.06 (60.78 kg, 149.86 cm) af3 ED Course: 08:11 Patient arrived in ED. iw 08:11 [facility] kb 08:11 Vince Clark MD is Attending Physician. kb 08:12 Marie Mendes, STEVEN is Primary Nurse. af3 08:16 Triage completed. af3 08:30 Patient has correct armband on for positive identification. Bed in low position. Call af3 light in reach. Provided Education on: call light use . 08:30 No provider procedures requiring assistance completed. Maintain EMS IV. Dressing af3 intact. Good blood return noted. Site clean \T\ dry. Gauge \T\ site: 18G R AC . Flushed with 10 mL NS. 08:31 Arm band placed on. af3 08:31 Initial lab(s) drawn, by me, sent to lab. ph 08:39 Chest Single View XRAY In Process Unspecified. EDMS 08:45 CT Head Brain wo Cont In Process Unspecified. EDMS 11:30 Nirmal Clark MD is Hospitalizing Provider. kb 13:41 IV discontinued, intact, bleeding controlled, No redness/swelling at site. Pressure af3 dressing applied. Administered Medications: 08:29 Drug: NS 0.9% IV 1000 ml IV at 1000 ml once; to be given as a bolus over 60 minutes af3 Route: IV; Rate: 1000 ml; Site: right antecubital; 10:07 Follow up: Response: No adverse reaction; IV Status: Completed infusion; IV Intake: af3 1000ml 09:17 Drug: Potassium Chloride PO 40 mEq PO once Route: PO; af3 10:07 Follow up: Response: No adverse reaction af3 10:08 Drug: NS 0.9% IV 1000 ml IV at 1000 ml once; to be given as a bolus over 60 minutes af3 Route: IV; Rate: 1000 ml; Site: right antecubital; 11:30 Follow up: Response: No adverse reaction; IV Status: Completed infusion; IV Intake: af3 1000ml Medication: 08:31 VIS not applicable for this client. af3 Intake: 10:07 IV: 1000ml; Total: 1000ml. af3 11:30 IV: 1000ml; Total: 2000ml. af3 Outcome: 11:31 Decision to Hospitalize by Provider. kb 13:15 Discharge ordered by MD. kb 13:41 Discharged to home via wheelchair, af3 13:41 Condition: stable 13:41 Discharge instructions given to patient, family, Instructed on discharge instructions, follow up and referral plans. medication usage, Demonstrated understanding of instructions, follow-up care, medications, Prescriptions given X 1, 13:41 Patient left the ED. af3 Signatures: Dispatcher [employer] EDMS Negrita Rubio, DEPUTY SHERIFF-Shorty DEPUTY SHERIFF-Nida Wang, RN RN Claudine Santana RN RN Marie Mendes RN RN af3
[2025-08-16 11:56] LABS: Sqamous Epithelial <5 /HPF (None Seen); Urine Culture Reflex Order REFLEXED; Urine Microscopic Reflex YN ORDER UMIC; Urine WBC Clump Occasional /HPF (None Seen); Urine Yeast (Budding) Few /HPF (None Seen)
--- NOTE | 2025-08-16 13:30 | P.CNS ---
Date of Consult: 08/16/25 Patient was examined while in the ED and reported that she had taken [id number] THC tablets that she had picked up from the store yesterday for the very first time. Her syncopal event/fall took place after she had taken this medication. I informed the patient that ED attending and hospital medicine team were recommending hospital admission for orthostatic hypotension and syncopal event due to patient continuing to have positive orthostatic vitals after 2 Liters of fluid resuscitation. I recommended for an echocardiogram to be completed and patient to have further monitoring/workup. Due to the echocardiogram not being able to be completed over the weekend here in the hospital, patient stated that she did not want to be admitted and wanted to go home because she has a cruise with her family to go on. Patient did however state that her symptoms had greatly improved after fluid bolus. Patient was advised against leaving hospital and that further monitoring and echocardiogram was highly recommended, was explained the risk if she was to discharge herself home, and was informed that if symptoms progressed/worsened to report back to the ED immediately.
[2025-08-16 14:18] VITALS: BP 105/64; O2SAT 100
== END 2025-08-16 13:41 | disposition home or self-care (01) ==
LOC: ER 08:07
DX: I95.1 Orthostatic hypotension (principal); N39.0 Urinary tract infection, site not specified; I10 Essential (primary) hypertension
CPT/HCPCS: 96361; 93005; 87088; 85025; 81001; 87086; 80048; 36415; 83735; 80076; 87077; 87186; 84484; 70450; 71045; 96360; 99284; J7030 ×2